=== PATIENT | female | born 2000 | race Caucasian/White ===

== ENCOUNTER 2021-02-19 17:45 | Emergency (ER) | payer SELFPAY ==
[2021-02-19 17:58] VITALS: BP 144/74; PULSE 68; RESP 16; TEMP 36.6; O2SAT 100; BMI 23.8
--- NOTE | 2021-02-19 18:24 | HMH.EDUTC ---
[facility] Disposition Clinical Impression: Exposure to COVID-19 virus Disposition: Home, Self-Care Condition on Discharge: Good Instructions: DI for COVID-19 (Suspected or Confirmed ), Coronavirus Disease 2019, Preventing the Spread of Coronavirus Discharge Instructions, Sore Throat Additional Instructions: *Monitor Temp, Over the counter Motrin or Tylenol as directed/as needed Tylenol every 4 hours and Motrin every 6 hours (as long as your family doctor has told you that you can take it) for fever or pain. and straight to ER if unable to lower temp less than 101.0 after medication given *Warm salt water gargles may help to soothe the throat *Throat Lozenges *Warm fluids like tea with honey may help to soothe the throat *Sleep elevated *Humidifier/Vaporizer *Bromfed may cause drowsiness. Know how it effects you (your child) before driving, caring for small child, or sending your child to school. Not other antihistamines/allergy medications while taking bromfed Your throat swab was sent for culture. Those results are typically sent to your primary care. Be sure to follow up in 2-3 days with your family doctor/primary care physician if no improvement so they can review those result and treat if necessary. If you don?t have a primary care doctor, I recommend you get one but in the mean time, you will have to return to a walk in clinic Follow up IMMEDIATELY for new or worsening symptoms or no Noticeable improvement over the next 48-72 hours. 911 for difficulty breathing or swallowing You were tested for today for COVID19 your test result should be back in the next 24-48 hours, you may call to the [facility] to see if your test results are back in the next 48 hours [phone] [facility] hours are 9am-9pm You was given a handout with instructions for Self Quarantine and Self isolation for while you wait on test results and what to do if they are positive If you are positive the Health Dept will be contacting you also Prescriptions: Brompheniramine/Pseudoephed/Dm [Bromfed Dm Cough Syrup] 5 - 10 ml PO Q46H PRN #150 ml PRN Reason: Cough Transmission Status: Pending to [facility] Ondansetron [Zofran 4mg ODT] 4 mg PO TIDP PRN #10 tab PRN Reason: Nausea Transmission Status: Pending to [facility] Referrals: Jimenez Mcclure MD [Primary Care Provider] - As needed Forms: Work/School Release Time of Disposition: 18:33 Medical Decision Making - Naif Inquiry Pt receiving controlled substance: No Naif was queried for this patient: No Vital Signs: 02/19/21 17:58 Temperature 97.8 F Temperature Source Oral Pulse Rate [Left] 68 Respiratory Rate 16 Blood Pressure [Right Arm] 144/74 H Blood Pressure Mean [Right Arm] 97 02 Sat by Pulse Oximetry 100 - Lab Data Lab results reviewed: Yes: I reviewed the patient's lab results. [facility] HPI - General Stated complaint: covid test,Sore throat,cough,HAmDiarrhea Time Seen by Provider: 02/19/21 18:25 Mode of Arrival: Ambulatory Source of Information: Patient Limitations: No Limitations Description of Symptoms (Recalled from Triage Doc. by RN): friend tested positive for covid. pt c/o having all the signs of covid, except loss of taste and smell. HEENT Symptoms (Recalled from RN notes): Yes (congestion and hale) Resp Symptoms (Recalled from RN notes): Yes (cough) Skin Symptoms (Recalled from RN notes): No MS Symptoms (Recalled from RN notes): No Functional Status (Recalled from RN notes): na - History of Present Illness Provider Complaint: Patient states that she was recently out of town with her friend and they both started getting sick State that her friend tested positive for COVID on Mon and she thinks she has it now too States that she is having body aches, chills, nausea and cough states that she can still taste and smell though unlike her friend - Related Data Previous Rx's Medication Instructions Recorded Ibuprofen [Ibuprofen 600mg 600 mg PO Q6HP PRN #20 tab
[2021-02-19 18:33] LABS: UTC Strep Screen (Rapid) Negative (Negative)
[2021-02-19 18:41] VITALS: BP 122/73; PULSE 85; RESP 18; TEMP 36.6
== END 2021-02-19 18:41 | disposition home or self-care (01) ==
PROVIDERS: Emergency Provider Nurse Practitioner; PCP Emergency Medicine
DX: Z20.822 Contact with and (suspected) exposure to COVID-19 (principal); M79.7 Fibromyalgia; F17.210 Nicotine dependence, cigarettes, uncomplicated
CPT/HCPCS: 87880; 99203; G0463; U0003

== ENCOUNTER 2021-08-05 13:20 | Emergency (ER) | payer BC, SELFPAY ==
[2021-08-05 13:30] VITALS: BP 140/72; PULSE 109; RESP 19; TEMP 36.9; O2SAT 98; BMI 40.3
[2021-08-05 13:53] LABS: UTC Strep Screen (Rapid) Negative (Negative)
--- NOTE | 2021-08-05 14:28 | HMH.EDUTC ---
[facility] [place] Disposition Clinical Impression: Exposure to COVID-19 virus, Viral syndrome Disposition: Home, Self-Care Condition on Discharge: Good Instructions: DI for Viral Syndrome, DI for COVID-19 (Suspected or Confirmed ), Preventing the Spread of Coronavirus Discharge Instructions Additional Instructions: *Monitor Temp, Over the counter Tylenol as directed/as needed Tylenol every 4 hours (as long as your family doctor has told you that you can take it) for fever or pain. and straight to ER if unable to lower temp less than 101.0 after medication given *Warm salt water gargles may help to soothe the throat *Throat Lozenges *Warm fluids like tea with honey may help to soothe the throat *Sleep elevated *Humidifier/Vaporizer Talk to your OBGYN or Pharmacy to see what is ok for you to take for your cough Your throat swab was sent for culture. Those results are typically sent to your primary care. Be sure to follow up in 2-3 days with your family doctor/primary care physician if no improvement so they can review those result and treat if necessary. If you don?t have a primary care doctor, I recommend you get one but in the mean time, you will have to return to a walk in clinic Follow up IMMEDIATELY for new or worsening symptoms or no Noticeable improvement over the next 48-72 hours. 911 for difficulty breathing or swallowing You were tested for today for COVID19 your test result should be back in the next 24-48 hours, you may check your results on the [facility] My Health Portal if you have trouble logging on you can call support or you will get a call if your results are Positive You was given a handout with instructions for Self Quarantine and Self isolation for while you wait on test results and what to do if they are positive If you are positive the Health Dept will be contacting you also Make sure to take your Vitamins Vit. C Vit D and Zinc if you can take them Referrals: Nishant Davidson APRN [Primary Care Provider] - As needed Forms: Work/School Release Time of Disposition: 14:30 Medical Decision Making - Naif Inquiry Pt receiving controlled substance: No Naif was queried for this patient: No Vital Signs: 08/05/21 13:30 Temperature 98.4 F Temperature Source Oral Pulse Rate [Right Brachial] 109 H Respiratory Rate 19 Blood Pressure [Right Arm] 140/72 Blood Pressure Mean [Right Arm] 94 Blood Pressure Source [Right Arm] Automatic Cuff Blood Pressure Position [Right Arm] Sitting 02 Sat by Pulse Oximetry 98 Oxygen Delivery Method Room Air - Lab Data Lab results reviewed: Yes: I reviewed the patient's lab results. Lab Results 08/05/21 13:38: Strep Scn Rapid Clinic Negative Orders (Tests/Meds): ORDERS Category Date Time Status Covid-19 Nasal PCR ([facility]) Routine Lab 08/05/21 13:36 Received Strep Screen Confirmation Stat Micro 08/05/21 13:38 Received [facility] UTC HPI - General Stated complaint: sore throat cough,headache Time Seen by Provider: 08/05/21 14:28 Mode of Arrival: Ambulatory Source of Information: Patient Limitations: No Limitations Description of Symptoms (Recalled from Triage Doc. by RN): PATIENT C/O COUGH, SORE THROAT, HEADACHE, BODY ACHES, AND CHILLS SINCE THIS MORNING HEENT Symptoms (Recalled from RN notes): Yes Resp Symptoms (Recalled from RN notes): Yes Skin Symptoms (Recalled from RN notes): No MS Symptoms (Recalled from RN notes): No Functional Status (Recalled from RN notes): WNL - History of Present Illness Provider Complaint: Patient state that her boyfriend tested positive for COVID yesterday State that she started feeling bad last night State that she is 11wks OB States that she has been having cough, sore throat, body aches, and chills State that it continued to get worse over night so she came in today to get tested - Related Data Allergies Allergy/AdvReac Type Severity Reaction Status Date / Time No Known Allergies Allergy Verified 12/06/18 14:11 - Worker's Comp Is th
[2021-08-05 14:35] VITALS: BP 140/72; PULSE 109; RESP 19; TEMP 36.9; O2SAT 98
== END 2021-08-05 14:38 | disposition home or self-care (01) ==
PROVIDERS: Emergency Provider Nurse Practitioner; PCP Nurse Practitioner Family
DX: U07.1 COVID-19 (principal); F17.210 Nicotine dependence, cigarettes, uncomplicated; M79.7 Fibromyalgia
CPT/HCPCS: 87880; 99203; C9803; G0463; U0003; U0005

== ENCOUNTER 2021-09-22 17:52 | Emergency (ER) | payer BC, SELFPAY ==
[2021-09-22 18:41] VITALS: BP 122/68; PULSE 90; RESP 18; TEMP 36.4; O2SAT 95; BMI 35.5
[2021-09-22 18:54] LABS: UTC Strep Screen (Rapid) Positive (Negative)
--- NOTE | 2021-09-22 19:47 | HMH.EDUTC ---
[facility] [place] Disposition Clinical Impression: Strep throat Disposition: Home, Self-Care Condition on Discharge: Good Instructions: Strep Throat, DI for Strep Throat Additional Instructions: Drink plenty of fluids. Take tylenol or ibuprofen for pain or fever. Take the medications as directed. Follow up with your regular doctor. GO TO THE ER FOR ANY WORSENING SYMPTOMS Throw your tooth brush away and get a new one. Prescriptions: Amoxicillin [Amoxicillin 500mg Tab] 500 mg PO TID 10 Days #30 tab Transmission Status: Received by [facility] Referrals: Nishant Davidson APRN [Primary Care Provider] - Forms: Work/School Release Time of Disposition: 19:57 Medical Decision Making - Medical Records Medical records reviewed: No: I reviewed the patient's medical records. - Naif Inquiry Pt receiving controlled substance: No Vital Signs: 09/22/21 18:41 09/22/21 20:03 Temperature 97.6 F 97.6 F Temperature Source Temporal Artery Scan Pulse Rate 90 Pulse Rate [Left] 90 Respiratory Rate 18 18 Blood Pressure 122/68 Blood Pressure [Right Arm] 122/68 Blood Pressure Mean [Right Arm] 86 02 Sat by Pulse Oximetry 95 - Lab Data Lab results reviewed: Yes: I reviewed the patient's lab results. Lab Results 09/22/21 18:36: Strep Scn Rapid Clinic Positive A [facility] [place] HPI - General Stated complaint: SORE THROAT.COUGH Time Seen by Provider: 09/22/21 19:00 Mode of Arrival: Ambulatory Source of Information: Patient Limitations: No Limitations Description of Symptoms (Recalled from Triage Doc. by RN): pt c/o a sore throat, cough, ZHENG, and pressure in her ears. x1wk HEENT Symptoms (Recalled from RN notes): Yes Resp Symptoms (Recalled from RN notes): Yes Skin Symptoms (Recalled from RN notes): No MS Symptoms (Recalled from RN notes): No Functional Status (Recalled from RN notes): wnl - History of Present Illness Provider Complaint: She c/o sore throat for the past 2 days. - Related Data Previous Rx's Medication Instructions Recorded Amoxicillin [Amoxicillin 500mg Tab] 500 mg PO TID 10 Days #30 tab 09/22/21 Allergies Allergy/AdvReac Type Severity Reaction Status Date / Time No Known Allergies Allergy Verified 12/06/18 14:11 - Worker's Comp Is this a Worker's Comp case?: No [facility] History - Hepatitis A Screen Drug use history?: No High risk sexual behaviors?: No History of sexually transmitted infection?: No Currently employed?: No Childcare worker?: No Do you have indoor plumbing?: Yes Do you have electricity?: Yes Attestation statement:: This patient has been screened for Hepatitis A risk factors. I have reviewed the patient's past medical history: Yes Medical History: Denies:: Aneurysm, Anxiety, Asthma, Atrial Fibrillation, Congestive Heart Failure, Chronic Obstructive Pulmonary Disease (COPD), Coronary Artery Disease, Cerebrovascular Accident, Deep Vein Thrombosis, Dementia, Depression, Diabetes Mellitus Type 1, Diabetes Mellitus Type 2, Gastroesophageal Reflux Disease(GERD), Gastrointestinal Bleed, Hyperlipidemia, Hypertension, Internal Pacemaker, Kidney Stones, Migraine, Myocardial Infarction, Osteoporosis, Peripheral Artery Disease, Pulmonary Embolism, Renal Disease, Seizures, Supraventricular Tachycardia, Transient Ischemic Attacks (TIA), Valvular Heart Disease Other Medical History: Denies: Arthritis, Cataracts, Fibromyalgia, Glaucoma, Acquired Immunodeficiency Syndrome (AIDS), HIV, Liver Disease, Osteoporosis, Thyroid Disease Laterality Cases: Bilateral: Tonsillectomy Other Surgeries: Yes: No Previous Surgery. No: Angioplasty, Appendectomy, Bariatric Surgery, CABG, Cancer Surgery, Cholecystectomy, Colon Resection, Colostomy, Hernia Repair, Hysterectomy-Total, Hysterectomy-Partial, Organ Transplant, Pacemaker, Sinus Surgery, Splenectomy, Thyroidectomy, Ureter Stent, Other Valve Replacement Amputation: No Fractures: No - Social History Smoking Status: Desire
[2021-09-22 20:03] VITALS: BP 122/68; PULSE 90; RESP 18; TEMP 36.4
== END 2021-09-22 20:05 | disposition home or self-care (01) ==
PROVIDERS: Emergency Provider Nurse Practitioner Family; PCP Nurse Practitioner Family
DX: J02.0 Streptococcal pharyngitis (principal)
CPT/HCPCS: 87880; 99212; G0463

== ENCOUNTER 2021-11-04 16:59 | Emergency (ER) | payer BC, SELFPAY ==
[2021-11-04 17:22] VITALS: BP 117/77; PULSE 103; RESP 19; TEMP 37; O2SAT 97; BMI 45.1
--- NOTE | 2021-11-04 17:36 | HMH.EDUTC ---
[facility] [place] Clinical Impression: Influenza A Disposition: Home, Self-Care Condition on Discharge: Good Instructions: DI for Influenza -- Adult Additional Instructions: No sign of a bacterial infection. Likely viral. Viruses can take 7-14 days to run their course. Monitor temp. Tylenol as needed for pain or fever Encourage fluids, water, Gatorade, Powerade, Warm salt water gargles Warm fluids Sore throat lozenges Sleep elevated Humidifier/vaporizer Follow-up immediately for new or worsening symptoms or no noticeable improvement over the next 48-72 hours. Prescriptions: Oseltamivir Phosphate [Tamiflu 75mg Capsule] 75 mg PO BID #10 cap Transmission Status: Pending to [facility] Referrals: Nishant Davidson APRN [Primary Care Provider] - Time of Disposition: 17:47 Medical Decision Making - Naif Inquiry Pt receiving controlled substance: No Vital Signs: 11/04/21 17:22 Temperature 98.6 F Temperature Source Oral Pulse Rate [Left] 103 H Respiratory Rate 19 Blood Pressure [Right Arm] 117/77 Blood Pressure Mean [Right Arm] 90 02 Sat by Pulse Oximetry 97 - Lab Data Lab Results 11/04/21 17:21: Influenza Type A Ag Positive A, Influenza Type B Ag Negative 11/04/21 17:22: Group A Strep Rapid Negative Orders (Tests/Meds): ORDERS Category Date Time Status Strep Screen Confirmation Stat Micro 11/04/21 17:22 Received [facility] [place] HPI - General Chief complaint: [facility] Stated complaint: throat, cough body pain Time Seen by Provider: 11/04/21 17:36 Mode of Arrival: Ambulatory Source of Information: Patient Limitations: No Limitations Description of Symptoms (Recalled from Triage Doc. by RN): pt c/o a cough, sore throat, body aches, n/v and loss of appetite since yesterday. pt is 5.5mo . HEENT Symptoms (Recalled from RN notes): Yes Resp Symptoms (Recalled from RN notes): No Skin Symptoms (Recalled from RN notes): No MS Symptoms (Recalled from RN notes): No Functional Status (Recalled from RN notes): wnl - History of Present Illness Provider Complaint: 21 yr old female presents for c/o a cough two days ago and last pm started having sore throat, body aches, n/v and loss of appetite since yesterday. pt is 5 mo . - Related Data Previous Rx's Medication Instructions Recorded Amoxicillin [Amoxicillin 500mg Tab] 500 mg PO TID 10 Days #30 tab 09/22/21 Oseltamivir Phosphate [Tamiflu 75 mg PO BID #10 cap 11/04/21 75mg Capsule] Allergies Allergy/AdvReac Type Severity Reaction Status Date / Time No Known Allergies Allergy Verified 12/06/18 14:11 - Worker's Comp Is this a Worker's Comp case?: No [facility] History - Hepatitis A Screen Drug use history?: No High risk sexual behaviors?: No History of sexually transmitted infection?: No Currently employed?: No Childcare worker?: No Do you have indoor plumbing?: Yes Do you have electricity?: Yes Attestation statement:: This patient has been screened for Hepatitis A risk factors. I have reviewed the patient's past medical history: Yes Medical History: Denies:: Aneurysm, Anxiety, Asthma, Atrial Fibrillation, Congestive Heart Failure, Chronic Obstructive Pulmonary Disease (COPD), Coronary Artery Disease, Cerebrovascular Accident, Deep Vein Thrombosis, Dementia, Depression, Diabetes Mellitus Type 1, Diabetes Mellitus Type 2, Gastroesophageal Reflux Disease(GERD), Gastrointestinal Bleed, Hyperlipidemia, Hypertension, Internal Pacemaker, Kidney Stones, Migraine, Myocardial Infarction, Osteoporosis, Peripheral Artery Disease, Pulmonary Embolism, Renal Disease, Seizures, Supraventricular Tachycardia, Transient Ischemic Attacks (TIA), Valvular Heart Disease Other Medical History: Denies: Arthritis, Cataracts, Fibromyalgia, Glaucoma, Acquired Immunodeficiency Syndrome (AIDS), HIV, Liver Disease, Osteoporosis, Thyroid Disease Laterality Cases: Bilateral: Tonsillectomy Other Surgeries: Yes: No Previous [place]
[2021-11-04 17:38] LABS: Strep Scrn Group A (Rapid) Negative (Negative)
[2021-11-04 17:41] LABS: UTC Influenza A Antigen Positive (Negative); UTC Influenza B Antigen Negative (Negative)
[2021-11-04 18:13] VITALS: BP 117/77; PULSE 103; RESP 19; TEMP 37
== END 2021-11-04 18:14 | disposition home or self-care (01) ==
PROVIDERS: Emergency Provider Nurse Practitioner Family; PCP Nurse Practitioner Family
DX: J10.1 Influenza due to other identified influenza virus with other respiratory manifestations (principal); F17.290 Nicotine dependence, other tobacco product, uncomplicated; Z82.49 Family history of ischemic heart disease and other diseases of the circulatory system
CPT/HCPCS: 87430; 87804; 99213; G0463

== ENCOUNTER 2021-11-15 18:46 | Emergency (ER) | payer BC, SELFPAY ==
[2021-11-15 19:30] VITALS: BP 141/86; PULSE 89; RESP 18; TEMP 36.8; O2SAT 99; BMI 43.7
--- NOTE | 2021-11-15 19:44 | HMH.EDUTC ---
[facility] [place] Disposition Clinical Impression: Paronychia Disposition: Home, Self-Care Condition on Discharge: Good Instructions: DI for Paronychia, Paronychia, Amoxicillin and Clavulanic Acid, Bacitracin Topical Additional Instructions: Soak finger in warm water and epson salt two to three times daily and pat dry and apply topical medication Take oral medication as prescribed Look for sharp hangnail to stick through skin and trim Return if needed Follow up with your Family Doctor if no improvement or any worsening of symptoms Prescriptions: Amoxicillin/Potassium Clav [Amox-Clav 875-125 mg Tablet] 1 tab PO BID #14 tab [facility]: [facility] Bacitracin [Bacitracin Oint 0.9GM UDP] 1 each TP TID 10 Days #30 packet Transmission Status: Pending to [facility] Referrals: Nishant Davidson APRN [Primary Care Provider] - As needed Time of Disposition: 19:58 Medical Decision Making - Naif Inquiry Pt receiving controlled substance: No Naif was queried for this patient: No Vital Signs: 11/15/21 19:30 Temperature 98.3 F Temperature Source Oral Pulse Rate [Left Radial] 89 Respiratory Rate 18 Blood Pressure [Left Arm] 141/86 H Blood Pressure Mean [Left Arm] 104 Blood Pressure Source [Left Arm] Automatic Cuff Blood Pressure Position [Left Arm] Sitting 02 Sat by Pulse Oximetry 99 Oxygen Delivery Method Room Air Medical Decision Narrative: Patient is medication discussed with pharmacy to assure that medication is safe for use during [facility] [place] HPI - General Stated complaint: LITTLE RIGHT FINGER INFECTED Time Seen by Provider: 11/15/21 19:44 Mode of Arrival: Ambulatory Source of Information: Patient Limitations: No Limitations Description of Symptoms (Recalled from Triage Doc. by RN): C/O ingrown nail to rt pinky. Advises of swelling since yesterday HEENT Symptoms (Recalled from RN notes): No Resp Symptoms (Recalled from RN notes): No Skin Symptoms (Recalled from RN notes): Yes (Ingrown nail rt pinky) MS Symptoms (Recalled from RN notes): No Functional Status (Recalled from RN notes): n/a - History of Present Illness Provider Complaint: Patient states that she has been having redness and swelling around her little finger on her right hand thinks she may have an ingrown fingernail or hang nail State that it is sore to the touch and red and a little swollen so she came in to get it checked - Related Data Previous Rx's Medication Instructions Recorded Amoxicillin [Amoxicillin 500mg Tab] 500 mg PO TID 10 Days #30 tab 09/22/21 Oseltamivir Phosphate [Tamiflu 75 mg PO BID #10 cap 11/04/21 75mg Capsule] Amoxicillin/Potassium Clav 1 tab PO BID #14 tab 11/15/21 [Amox-Clav 875-125 mg Tablet] Bacitracin [Bacitracin Oint 0.9GM 1 each TP TID 10 Days #30 packet 11/15/21 UDP] Allergies Allergy/AdvReac Type Severity Reaction Status Date / Time No Known Allergies Allergy Verified 12/06/18 14:11 - Worker's Comp Is this a Worker's Comp case?: No [facility] History - Hepatitis A Screen Drug use history?: No High risk sexual behaviors?: No History of sexually transmitted infection?: No Currently employed?: No Childcare worker?: No Do you have indoor plumbing?: Yes Do you have electricity?: Yes Attestation statement:: This patient has been screened for Hepatitis A risk factors. I have reviewed the patient's past medical history: Yes Medical History: Denies:: Aneurysm, Anxiety, Asthma, Atrial Fibrillation, Congestive Heart Failure, Chronic Obstructive Pulmonary Disease (COPD), Coronary Artery Disease, Cerebrovascular Accident, Deep Vein Thrombosis, Dementia, Depression, Diabetes Mellitus Type 1, Diabetes Mellitus Type 2, Gastroesophageal Reflux Disease(GERD), Gastrointestinal Bleed, Hyperlipidemia, Hypertension, Internal Pacemaker, Kidney Stones, Migraine, Myocardial Infarction, Osteoporosis, Peripheral Artery Disease, Pulmonary Embolism, Renal Diseas
[2021-11-15 20:19] VITALS: BP 141/86; PULSE 89; RESP 18; TEMP 36.8; O2SAT 99
== END 2021-11-15 20:20 | disposition home or self-care (01) ==
PROVIDERS: Emergency Provider Nurse Practitioner; PCP Nurse Practitioner Family
DX: L03.011 Cellulitis of right finger (principal); F17.210 Nicotine dependence, cigarettes, uncomplicated
CPT/HCPCS: 99212; G0463

== ENCOUNTER 2021-12-06 11:20 | Emergency (ER) | payer BC, SELFPAY ==
[2021-12-06 12:20] VITALS: BP 141/68; PULSE 80; RESP 18; TEMP 37; O2SAT 96; BMI 45.0
[2021-12-06 12:31] LABS: UTC Influenza A Antigen Negative (Negative); UTC Influenza B Antigen Negative (Negative)
--- NOTE | 2021-12-06 12:36 | HMH.EDUTC ---
[facility] [place]ression: Viral syndrome Disposition: Home, Self-Care Condition on Discharge: Good Instructions: DI for Viral Syndrome Additional Instructions: Drink plenty of fluids. Take tylenol for pain or fever. Follow up with your regular doctor. GO TO THE ER FOR ANY WORSENING SYMPTOMS Referrals: Nishant Davidson APRN [Primary Care Provider] - Forms: Work/School Release Time of Disposition: 13:28 Medical Decision Making - Medical Records Medical records reviewed: No: I reviewed the patient's medical records. - Naif Inquiry Pt receiving controlled substance: No Vital Signs: 12/06/21 12:20 12/06/21 13:39 Temperature 98.6 F 98.6 F Temperature Source Oral Pulse Rate 80 Pulse Rate [Left Radial] 80 Respiratory Rate 18 18 Blood Pressure 141/68 H Blood Pressure [Right Arm] 141/68 H Blood Pressure Mean [Right Arm] 92 02 Sat by Pulse Oximetry 96 - Lab Data Lab results reviewed: Yes: I reviewed the patient's lab results. Lab Results 12/06/21 12:18: Influenza Type A Ag Negative, Influenza Type B Ag Negative 12/06/21 12:19: Group A Strep Rapid Negative Orders (Tests/Meds): ORDERS Category Date Time Status Strep Screen Confirmation Stat Micro 12/06/21 12:19 [place] [facility] [place] - General Stated complaint: cough, diarrhea Time Seen by Provider: 12/06/21 12:36 Mode of Arrival: Ambulatory Source of Information: Patient, Significant Other Limitations: No Limitations Description of Symptoms (Recalled from Triage Doc. by RN): pt here with c/oi of coughing and diarrhea. symptoms started yesterday. pt is 7 months HEENT Symptoms (Recalled from RN notes): No Resp Symptoms (Recalled from RN notes): No Skin Symptoms (Recalled from RN notes): No MS Symptoms (Recalled from RN notes): Yes Functional Status (Recalled from RN notes): wnl - History of Present Illness Provider Complaint: She c/o having a cough since yesterday. She has also been having diarrhea, but no n/v. She denies any abdominal pain or cramping. She denies fever or chills. She denies any dysuria, vaginal bleeding or discharge. - Related Data Previous Rx's Medication Instructions Recorded Amoxicillin [Amoxicillin 500mg Tab] 500 mg PO TID 10 Days #30 tab 03/02/22 Oseltamivir Phosphate [Tamiflu 75 mg PO BID #10 cap 11/04/21 75mg Capsule] Amoxicillin/Potassium Clav 1 tab PO BID #14 tab 11/15/21 [Amox-Clav 875-125 mg Tablet] Bacitracin [Bacitracin Oint 0.9GM 1 each TP TID 10 Days #30 packet 11/15/21 UDP] Allergies Allergy/AdvReac Type Severity Reaction Status Date / Time No Known Allergies Allergy Verified 12/06/21 12:25 - Worker's Comp Is this a Worker's Comp case?: No [facility] History - Hepatitis A Screen Attestation statement:: This patient has been screened for Hepatitis A risk factors. I have reviewed the patient's past medical history: Yes Medical History: Denies:: Aneurysm, Anxiety, Asthma, Atrial Fibrillation, Congestive Heart Failure, Chronic Obstructive Pulmonary Disease (COPD), Coronary Artery Disease, Cerebrovascular Accident, Deep Vein Thrombosis, Dementia, Depression, Diabetes Mellitus Type 1, Diabetes Mellitus Type 2, Gastroesophageal Reflux Disease(GERD), Gastrointestinal Bleed, Hyperlipidemia, Hypertension, Internal Pacemaker, Kidney Stones, Migraine, Myocardial Infarction, Osteoporosis, Peripheral Artery Disease, Pulmonary Embolism, Renal Disease, Seizures, Supraventricular Tachycardia, Transient Ischemic Attacks (TIA), Valvular Heart Disease Other Medical History: Denies: Arthritis, Cataracts, Fibromyalgia, Glaucoma, Acquired Immunodeficiency Syndrome (AIDS), HIV, Liver Disease, Osteoporosis, Thyroid Disease Laterality Cases: Bilateral: Tonsillectomy Other Surgeries: Yes: No Previous Surgery. No: Angioplasty, Appendectomy, Bariatric Surgery, CABG, Cancer Surgery, Cholecystectomy, Colon Resection, Colostomy, Hernia Repair, Hysterectomy-Total, Hystere
[2021-12-06 13:00] LABS: Strep Scrn Group A (Rapid) Negative (Negative)
[2021-12-06 13:39] VITALS: BP 141/68; PULSE 80; RESP 18; TEMP 37
== END 2021-12-06 13:40 | disposition home or self-care (01) ==
PROVIDERS: Emergency Provider Nurse Practitioner Family; PCP Nurse Practitioner Family
DX: B34.9 Viral infection, unspecified (principal); R19.7 Diarrhea, unspecified; F17.290 Nicotine dependence, other tobacco product, uncomplicated; Z82.49 Family history of ischemic heart disease and other diseases of the circulatory system
CPT/HCPCS: 87430; 87804; 99213; G0463

== ENCOUNTER 2022-01-04 19:49 | Emergency (ER) | payer BC, SELFPAY ==
[2022-01-04 20:10] VITALS: BP 121/66; PULSE 91; RESP 18; TEMP 36.6; O2SAT 95; BMI 40.6
[2022-01-04 20:17] VITALS: BP 121/66; PULSE 91; RESP 18; TEMP 36.7
--- NOTE | 2022-01-04 20:17 | HMH.EDUTC ---
[facility] [place] Clinical Impression: Low back pain Qualifiers: Chronicity: unspecified Back pain laterality: unspecified Sciatica presence: unspecified whether sciatica present Qualified Code(s): M54.50 - Low back pain, unspecified Disposition: Home, Self-Care Condition on Discharge: Fair Additional Instructions: Go back to registration and reregister go straight to OB Referrals: Nishant Davidson APRN [Primary Care Provider] - As needed Time of Disposition: 20:22 Medical Decision Making - Naif Inquiry Pt receiving controlled substance: No Naif was queried for this patient: No Vital Signs: 01/04/22 20:10 01/04/22 20:17 Temperature 98 F 98.0 F Temperature Source Oral Pulse Rate 91 H Pulse Rate [Left Radial] 91 H Respiratory Rate 18 18 Blood Pressure 121/66 Blood Pressure [Right Arm] 121/66 Blood Pressure Mean [Right Arm] 84 02 Sat by Pulse Oximetry 95 Medical Decision Narrative: Patient states that she got hot at work and had some lightheadedness and felt dizzy but she is 33wks OB and has been having low back pain/pressure and pressure in her pelvic area when she squats for several days Called OB and patient will be moved to OB for further evaluation and treatment [facility] [place] - General Stated complaint: dizzy and light head Time Seen by Provider: 01/04/22 20:17 Description of Symptoms (Recalled from Triage Doc. by RN): patient is 8 month , she comes in with lightheadedness, dizziness, and shakes. patients states symptoms began today. patient states that she got really hot today at work HEENT Symptoms (Recalled from RN notes): No Resp Symptoms (Recalled from RN notes): No Skin Symptoms (Recalled from RN notes): No MS Symptoms (Recalled from RN notes): Yes Functional Status (Recalled from RN notes): wnl - History of Present Illness Provider Complaint: Patient states that she got hot at work earlier and felt light headed and dizzy also felt a little shaky but that has improved since she drink some fluids States that also she is 33wks OB and has been having pain in her lower back and pressure in her pelvic area when she squats down for the last couple of days and a couple nights ago felt like she had the urge to push but that went away but she was still having low back too so she came in - Related Data Previous Rx's Medication Instructions Recorded Amoxicillin [Amoxicillin 500mg Tab] 500 mg PO TID 10 Days #30 tab 09/22/21 Oseltamivir Phosphate [Tamiflu 75 mg PO BID #10 cap 11/04/21 75mg Capsule] Amoxicillin/Potassium Clav 1 tab PO BID #14 tab 11/15/21 [Amox-Clav 875-125 mg Tablet] Bacitracin [Bacitracin Oint 0.9GM 1 each TP TID 10 Days #30 packet 11/15/21 UDP] Allergies Allergy/AdvReac Type Severity Reaction Status Date / Time No Known Allergies Allergy Verified 12/06/21 12:25 - Worker's Comp Is this a Worker's Comp case?: No [facility] History - Hepatitis A Screen Attestation statement:: This patient has been screened for Hepatitis A risk factors. I have reviewed the patient's past medical history: Yes Medical History: Denies:: Aneurysm, Anxiety, Asthma, Atrial Fibrillation, Congestive Heart Failure, Chronic Obstructive Pulmonary Disease (COPD), Coronary Artery Disease, Cerebrovascular Accident, Deep Vein Thrombosis, Dementia, Depression, Diabetes Mellitus Type 1, Diabetes Mellitus Type 2, Gastroesophageal Reflux Disease(GERD), Gastrointestinal Bleed, Hyperlipidemia, Hypertension, Internal Pacemaker, Kidney Stones, Migraine, Myocardial Infarction, Osteoporosis, Peripheral Artery Disease, Pulmonary Embolism, Renal Disease, Seizures, Supraventricular Tachycardia, Transient Ischemic Attacks (TIA), Valvular Heart Disease Other Medical History: Denies: Arthritis, Cataracts, Fibromyalgia, Glaucoma, Acquired Immunodeficiency Syndrome (AIDS), HIV, Liver Disease, Osteoporosis, Thyroid Disease Laterality Cases: Bilateral: Tonsillectomy Other Surgeries: Yes: No Previous Surgery.
[2022-01-04 21:27] LABS: POC Glucose,Bedside 117 (70-110)
== END 2022-01-04 20:26 | disposition home or self-care (01) ==
PROVIDERS: Emergency Provider Nurse Practitioner; PCP Nurse Practitioner Family
DX: O26.893 Other specified pregnancy related conditions, third trimester (principal); M54.50 Low back pain, unspecified; O26.813 Pregnancy related exhaustion and fatigue, third trimester; R42 Dizziness and giddiness; O99.333 Smoking (tobacco) complicating pregnancy, third trimester; Z82.49 Family history of ischemic heart disease and other diseases of the circulatory system; Z3A.33 33 weeks gestation of pregnancy
CPT/HCPCS: 82962; 99213; G0463

== ENCOUNTER 2022-01-04 20:27 | Outpatient (CLI) | payer BC, SELFPAY ==
[2022-01-04 20:38] VITALS: BMI 44.4
[2022-01-04 20:48] LABS: Microscopic, Urine URINE MICROSCOPIC (MICROSCOPIC)
[2022-01-04 21:01] LABS: Appearance,Urine CLEAR (Clear); Blood, Urine Negative (Negative); Color,Urine YELLOW (Yellow); Glucose,Urine (UA) Negative (Negative); Ketones,Urine TRACE (Negative); Leukocyte Esterase,Urine Negative (Negative); Nitrate,Urine Negative (Negative); Protein,Urine TRACE (Negative); Specific Gravity, Urine >= 1.030 (1.005-1.030); Urobilinogen,Urine 0.2 EU/dl (0.2)
[2022-01-04 21:04] VITALS: BP 122/73; PULSE 96; RESP 18; TEMP 36.9; O2SAT 98; BMI 44.4
[2022-01-04 21:07] LABS: Bilirubin,Urine 1+ (Negative)
[2022-01-04 21:10] LABS: Bacteria,Urine 1+ /lpf; Trichomonas,Urine Occasional /lpf
[2022-01-04 21:12] LABS: Amphetamine/Metha Screen,Urine Negative ng/ml (<1000)
[2022-01-04 21:13] LABS: Barbiturates Screen,Urine Negative ng/ml (<200); Benzodiazepines Screen,Urine Negative ng/ml (<200)
[2022-01-04 21:14] LABS: Cannabinoid Screen,Urine Negative ng/ml (<50)
[2022-01-04 21:15] LABS: Cocaine Screen,Urine Negative ng/ml (<300); Methadone Screen,Urine Negative ng/ml (<300)
[2022-01-04 21:16] LABS: Opiate Screen,Urine Negative ng/ml (<300)
[2022-01-04 21:17] LABS: Phencyclidine Screen,Urine Negative ng/ml (<25)
== END 2022-01-04 22:35 | disposition home or self-care (01) ==
LOC: OBOUT 20:29 → OB 20:30
PROVIDERS: PCP Nurse Practitioner Family; Visit Provider Nurse Practitioner Obstetrics & Gynecology
DX: O26.893 Other specified pregnancy related conditions, third trimester (principal); Z3A.33 33 weeks gestation of pregnancy; M54.50 Low back pain, unspecified
CPT/HCPCS: 59025; 80305; 81001; 96360

== ENCOUNTER 2022-03-29 22:47 | Emergency (ER) | payer BC, SELFPAY ==
[2022-03-29 22:59] VITALS: BP 161/102; PULSE 102; RESP 18; TEMP 38.2; O2SAT 100; BMI 41.9
[2022-03-29 23:20] LABS: Coronavirus 19, PCR Not Detected (NotDetected); Influenza A, PCR Not Detected (NotDetected); Influenza B, PCR Not Detected (NotDetected)
[2022-03-29 23:24] LABS: Microscopic, Urine URINE MICROSCOPIC (MICROSCOPIC)
[2022-03-29 23:26] LABS: Appearance,Urine CLEAR (Clear); Bilirubin,Urine Negative (Negative); Blood, Urine 2+ (Negative); Color,Urine YELLOW (Yellow); Glucose,Urine (UA) Negative (Negative); Ketones,Urine Negative (Negative); Leukocyte Esterase,Urine Negative (Negative); Nitrate,Urine Negative (Negative); PH,Urine 6.5 (5.0-8.5); Protein,Urine Negative (Negative); Specific Gravity, Urine 1.025 (1.005-1.030); Urobilinogen,Urine 0.2 EU/dl (0.2)
[2022-03-29 23:27] LABS: Basophils % 0.3 % (0.1-2.0); Eosinophils # 0.1 K/mm3 (0.0-0.4); Eosinophils % 1.3 % (0.1-12.0); Hematocrit 31.8 % (37.0-47.0); Lymphocytes # 1.1 K/mm3 (0.7-4.5); Lymphocytes % 14.1 % (10-50); Mean Corpuscular HGB Conc 31.4 g/dL (31.8-35.4); Mean Corpuscular Hemoglobin 22.6 pg (27.0-31.2); Mean Platelet Volume 9.5 fl (7.4-10.4); Monocytes # 0.6 K/mm3 (0.1-1.0); Monocytes % 8.4 % (1.7-9.3); Neutrophils # 5.8 K/mm3 (1.8-7.8); Neutrophils % 75.8 % (37.0-80.0); Platelet Count 321 K/mm3 (142-424); Red Blood Count 4.42 M/mm3 (4.20-5.40); Red Cell Distribution Width 17.2 % (11.5-17.5); White Blood Count 7.7 K/mm3 (4.8-10.8)
[2022-03-29 23:53] LABS: Chloride 106 mmol/L (98-107); Sodium 141 mmol/L (136-145)
[2022-03-29 23:56] LABS: Alanine Aminotransferase 19 U/L (12-78); Albumin Level 4.3 g/dl (3.5-5.0); Albumin/Globulin Ratio 1.3 (1.1-1.8); Alkaline Phosphatase 89 U/L (38-126); Aspartate Amino Transferase 26 U/L (14-36); Blood Urea Nitrogen 22 mg/dl (7-17); Carbon Dioxide 25 mmol/L (22.0-30.0); Creatinine Clearance Estimated 103 mL/min (50-200); Estimated Glomerular Filt Rate 90 ml/min (>60); GFR (African American) 109 ML/MIN (>60); Globulin 3.3 g/dL (1.3-3.2); Total Protein,Serum 7.6 g/dl (6.3-8.2)
[2022-03-29 23:57] LABS: Calcium 9.6 mg/dl (8.4-10.2); Glucose 112 mg/dl (74-100)
[2022-03-30 00:02] LABS: C-Reactive Protein 21.5 mg/L (0-4)
[2022-03-30 00:03] VITALS: BP 138/81; PULSE 92; RESP 17; TEMP 38.2; O2SAT 97
[2022-03-30 00:07] LABS: Erythrocyte Sedimentation Rate 37 mm/hr (0-20)
--- NOTE | 2022-03-30 00:08 | PC.NURSE ---
PT UPDATED WITH EXPECTED WAIT TIMES. FAMILY AT BEDSIDE. WCM.
[2022-03-30 00:09] LABS: Bilirubin,Total < 0.1 mg/dl (0.2-1.3)
--- NOTE | 2022-03-30 00:11 | HMH.EDFEV ---
Discharge Plan Disposition Patient Disposition: Home, Self-Care Chief Complaint: Fever Prescriptions Prescriptions: No Action No Known Home Medications Referrals Follow up/Referrals: Jimenez Mcclure MD [Primary Care Provider] - See instructions Clinical Impressions Clinical Impression: Febrile illness, acute Instructions Patient Instructions: DI for Fever (Symptom) -- Adult Discharge ED Provider: Jimenez Mcclure Fever HPI General Chief Complaint: Fever Stated Complaint: fEVER,CHILLS,bODY aCHES Time Seen by Provider: 03/29/22 23:05 Mode of Arrival: Ambulatory Source of Information: Patient, Significant Other and Medical Record Limitations: No Limitations Description of Symptoms (Recalled from ER Triage Doc. by RN): PT REPORTS THAT SHE STARTED RUNNING A FEVER TODAY. PT DENIES ABDOMINAL PAIN. PT REPORTS THAT SHE HAD A 03/19/22. SITE WNL. History of Present Illness HPI Narrative: uri sx with fever today - no rash or urinary sx complaint: fever Onset (ago): hour(s) Context: recent procedure Associated symptoms: denies other symptoms Relieving factors: acetaminophen Related Data Home Medications Medication Instructions Recorded Confirmed No Known Home Medications 03/29/22 03/29/22 Allergies Allergy/AdvReac Type Severity Reaction Status Date / Time No Known Allergies Allergy Verified 12/06/21 12:25 PFSH PFSH Social History Smoking Status: Never smoker alcohol intake: never substance use type: denies use current occupational status: employed Travel in the last 8 weeks: None household members: family housing: house number of children: 0 ROS Obtained: Yes All systems reviewed & no additional complaints except as documented Constitutional Constitutional: Reports fever(s) Eyes Eyes: Denies loss of vision ENT Ears, Nose, Mouth, and Throat: Denies epistaxis Cardiovascular Cardiovascular: Denies dyspnea Respiratory Respiratory: Denies dyspnea Neurologic Neurologic: Denies loss of vision Physical Exam General General appearance: alert and obese Head Head exam: normocephalic Eye Eye exam: Present PERRL and EOMI ENT ENT exam: Present mucous membranes moist Expanded ENT Exam Throat exam: Present tonsillar erythema Neck Neck exam: Present trachea midline Respiratory Respiratory exam: Present normal lung sounds bilaterally; Absent respiratory distress Cardiovascular Cardiovascular exam: Present regular rate; Absent systolic murmur Abdominal Exam Abdominal exam: Present soft Extremities Exam Extremities exam: Absent tenderness Neurological Exam Neurological exam: Present alert, oriented X3 and CN II-XII intact Psychiatric Psychiatric exam: Present normal affect Skin Skin exam: Absent rash Medical Decision Making Medical Records Medical records reviewed: Yes I reviewed the patient's medical records. Naif Inquiry Pt receiving controlled substance: No Vital Signs: 03/29/22 22:59 03/29/22 23:31 03/30/22 00:03 Temperature 100.8 F H 100.8 F H Temperature Source Oral Oral Oral Pulse Rate 92 H Pulse Rate [Left Radial] 102 H Respiratory Rate 18 17 Blood Pressure 138/81 Blood Pressure [Right Arm] 161/102 H Blood Pressure Mean 94 Blood Pressure Mean [Right Arm] 121 Blood Pressure Source [Right Arm] Automatic Cuff Blood Pressure Position [Right Arm] Sitting 02 Sat by Pulse Oximetry 100 97 Oxygen Delivery Method Room Air Lab Data Lab results reviewed: Yes I reviewed the patient's lab results. Lab Results 03/29/22 22:53: Urine Color Yellow, Urine Appearance Clear, Urine pH 6.5, Ur Specific [place] 1.025, Urine Protein Negative, Urine Glucose (UA) Negative, Urine Ketones Negative, Urine Blood 2+, Urine Nitrate Negative, Urine Bilirubin Negative, Urine Urobilinogen 0.2, Ur Leukocyte Esterase Negative, Urine RBC 3-5, Urine WBC 3-5, Ur Squamous Epith Cells Occasional, Urine Bacteria Trace 03/29/22
[2022-03-30 00:21] LABS: Bacteria,Urine Trace /lpf; Squamous Epithelial Cell,Urine Occasional #/hpf (0-5)
[2022-03-30 00:32] VITALS: BP 120/75; PULSE 90; RESP 19; TEMP 37.6; O2SAT 95
[2022-03-30 00:36] LABS: Adenovirus,PCR Not Detected (NotDetected); Bordetella Pertussis Not Detected (NotDetected); Chlamydophila Pneumoniae, PCR Not Detected (NotDetected); Coronavirus 229E Not Detected (NotDetected); Coronavirus NL63 Not Detected (NotDetected); Coronavirus OC43 Not Detected (NotDetected); Coronovirus HKU1,PCR Not Detected (NotDetected); Human Metapneumovirus Not Detected (NotDetected); Influenza A, PCR Not Detected (NotDetected); Influenza AH1, 2009 Not Detected (NotDetected); Influenza AH1, PCR Not Detected (NotDetected); Influenza AH3,PCR Not Detected (NotDetected); Influenza B, PCR Not Detected (NotDetected); Mycoplasma Pneumoniae, PCR Not Detected (NotDetected); Parainfluenza 1, PCR Not Detected (NotDetected); Parainfluenza 2, PCR Not Detected (NotDetected); Parainfluenza 3, PCR Not Detected (NotDetected); Parainfluenza 4, PCR Not Detected (NotDetected); Respiratory Syncytial Virus Not Detected (NotDetected); Rhinovirus/Enterovirus Not Detected (NotDetected)
== END 2022-03-30 00:44 | disposition home or self-care (01) ==
PROVIDERS: Emergency Provider Emergency Medicine; PCP Emergency Medicine
DX: R50.9 Fever, unspecified (principal); M79.10 Myalgia, unspecified site; Z20.822 Contact with and (suspected) exposure to COVID-19
CPT/HCPCS: 80053; 81001; 85025; 85651; 86140; 87486; 87581; 87632; 87798; 96360; 99284; C9803; U0003; U0005

== ENCOUNTER 2022-04-02 20:57 | Emergency (ER) | payer BC, SELFPAY ==
[2022-04-02 22:15] VITALS: BP 0/0; PULSE 0; RESP 0; TEMP -17.7; TEMP 0
== END 2022-04-02 22:16 | disposition left against medical advice (07) ==
LOC: ER 21:39
PROVIDERS: Emergency Provider Emergency Medicine; PCP Physician Assistant
DX: Z53.21 Procedure and treatment not carried out due to patient leaving prior to being seen by health care provider (principal)

== ENCOUNTER → 2022-12-06 15:29 | Outpatient (CLI) | payer BC, SELFPAY ==
[2022-12-06 18:28] LABS: HCG,Quantitative 53726 mIU/ml (0-5.42)
[2022-12-08 15:05] LABS: Progesterone 10.7 ng/mL (.)
== END ==
PROVIDERS: PCP Pediatrics; Visit Provider Obstetrics & Gynecology
DX: N92.6 Irregular menstruation, unspecified (principal); Z32.00 Encounter for pregnancy test, result unknown
CPT/HCPCS: 36415; 84144; 84702

== ENCOUNTER → 2022-12-28 16:02 | Outpatient (CLI) | payer BC, SELFPAY | PROVIDERS: PCP Obstetrics & Gynecology; Visit Provider Obstetrics & Gynecology | DX: Z34.90 Encounter for supervision of normal pregnancy, unspecified, unspecified trimester (principal); Z3A.16 16 weeks gestation of pregnancy | CPT/HCPCS: 87086 ==

== ENCOUNTER → 2023-01-20 13:05 | Outpatient (CLI) | payer BC, SELFPAY ==
--- NOTE | 2023-01-20 13:09 | US_ITS ---
PROCEDURE: US OB /MATERNAL DETAIL CLINICAL INDICATION: 20 week anatomy scan COMPARISON: No exams were available for comparison FINDINGS: From her established due date she is 19 weeks 6 days. Viable intrauterine gestation. Cephalic position. Placenta: Anteriorplacenta grade 1. There are several placental lakes. There is average amount fluid. The cervix appears satisfactory. Closed and measuring 4.3 cm in length. Complete survey performed and was unremarkable on the submitted images as in PACS. No discrete anomalies identified on survey imaging by technologist. Active fetus. Three-vessel cord. CORD INSERTION NOT WELL VISUALIZED. FOUR-CHAMBER VIEW NOT WELL VISUALIZED. Cardiac images submitted appear normal. Aortic arch appears normal Survey of brain & ventricles Unremarkable. Choroid plexus, thalamus, cerebellum, cisterna magna all appear normal. Face and neck survey unremarkable. Upper lip and nose appear normal, PROFILE AND NASION NOT WELL VISUALIZED Diaphragm and chest views unremarkable. Abdomen: Both kidneys NOT WELL SEEN. Stomach noted and satisfactory. Bladder appears normal Spine: Survey of the spine satisfactory with no anomalies identified nor imaged. Upper, thoracic and lower spine appear normal. Both arms and legs noted. Amniotic Fluid: Adequate. Measurements: Average ultrasound age 19weeks 2days. Estimated due date by ultrasound age 1106/14/2023. Estimated weight 291g BPD = 19weeks 0 days OFD = 19weeks 2days HC = 18weeks 3days AC = 19weeks 4days FL = 19weeks 5days Growth Percentile= 33 percent Heart Rate = 150bpm Cerebellum = 19weeks 3days Humerus = 19weeks 2days HC/AC is 1.1 CI is 0.78 FL/BPD is 0.73 FL/AC is 0.22 IMPRESSION: 1. Viable fetus in the cephalic presentation with an anterior placenta grade 1. The fluid is within normal limits. 2. The placenta has several placental lakes of questionable significance. 3. Anatomical scan somewhat limited by the patient's body habitus. 4. Heart, kidneys, profile, cord insertion, nasion NOT well visualized due to position and body habitus. SUGGEST REPEAT SCAN AT 24-28 WEEKS TO ASSESS THOSE AREAS NOT FULLY VISUALIZED. 5. Anatomy images submitted in PACS appears normal. 6. Size and dates are appropriate for established due date. Dictated by: Alfredo Linda MD 01/21/2023 10:15 Alfredo Linda MD in [place] 01/21/2023 10:15
== END ==
PROVIDERS: PCP Obstetrics & Gynecology; Visit Provider Obstetrics & Gynecology
DX: Z34.92 Encounter for supervision of normal pregnancy, unspecified, second trimester (principal); Z3A.20 20 weeks gestation of pregnancy
CPT/HCPCS: 76811

== ENCOUNTER → 2023-02-22 11:58 | Outpatient (CLI) | payer BC, SELFPAY ==
[2023-02-22 12:18] LABS: Basophils % 0.2 % (0.1-2.0); Eosinophils # 0.1 K/mm3 (0.0-0.4); Hematocrit 30.9 % (37.0-47.0); Hemoglobin 9.8 g/dL (12.2-16.2); Lymphocytes # 1.9 K/mm3 (0.7-4.5); Lymphocytes % 15.2 % (10-50); Mean Corpuscular HGB Conc 31.7 g/dL (31.8-35.4); Mean Corpuscular Hemoglobin 20.7 pg (27.0-31.2); Mean Corpuscular Volume 65.3 fl (81-99); Mean Platelet Volume 9.3 fl (7.4-10.4); Monocytes # 0.7 K/mm3 (0.1-1.0); Monocytes % 5.7 % (1.7-9.3); Neutrophils # 9.6 K/mm3 (1.8-7.8); Neutrophils % 77.9 % (37.0-80.0); Platelet Count 331 K/mm3 (142-424); Red Blood Count 4.73 M/mm3 (4.20-5.40); Red Cell Distribution Width 17.1 % (11.5-17.5); White Blood Count 12.3 K/mm3 (4.8-10.8)
[2023-02-23 05:18] LABS: HIV Screen 4th Generation wRfx Non Reactive (Non Reactive)
[2023-02-23 10:54] LABS: Rapid Plasma Reagin Ab Titer Non Reactive (NonRea<1:1)
[2023-03-10 08:37] LABS: Hepatitis B Surface Antigen Negative; Hepatitis C Antibody Non Reactive
[2023-03-10 08:38] LABS: Rubella Antibodies, IgG <0.90
== END ==
PROVIDERS: PCP Nurse Practitioner Family; Visit Provider Obstetrics & Gynecology
DX: Z34.92 Encounter for supervision of normal pregnancy, unspecified, second trimester (principal); Z3A.24 24 weeks gestation of pregnancy
CPT/HCPCS: 36415; 85025; 86593; 86703; 86762; 86850; 87340; 87380; G0432

== ENCOUNTER → 2023-02-27 15:07 | Outpatient (CLI) | payer BC, SELFPAY ==
--- NOTE | 2023-02-27 15:10 | US_ITS ---
PROCEDURE: US OB FOLLOW UP CLINICAL INDICATION: re-evaluate anatomy scan COMPARISON: US US OB /MATERNAL DETAIL from 01/20/2023 FINDINGS: Transabdominal sonographic images of the uterus were obtained. From her established due date she is 25weeks 2days single viable intrauterine gestation. Breech position. Placenta: Anteriorplacenta grade 1. There is average amount fluid. Cervix appears closed and measures 3.0 cm in length. survey performed and was unremarkable on the submitted images as in PACS. No discrete anomalies identified on survey imaging by technologist. The ultrasound was difficult secondary to the patient's obesity. Active fetus. Three-vessel cord with satisfactory umbilical cord insertion. 4- chamber heart noted. LVOT, aorta appear normal. brain: Choroid plexus appears normal. Face and neck survey: Unremarkable. Lips, nose, profile, nasion appear normal. Abdomen: Both kidneys noted and unremarkable. Stomach, bladder noted and satisfactory. Spine: Survey of the spine satisfactory with no anomalies identified nor imaged. Both arms and legs noted. Amniotic Fluid: Adequate. Measurements: Average ultrasound age 24weeks 4days. Estimated due date by ultrasound age 1106/15/2023. Estimated weight 746g BPD = 24weeks 1day OFD = 24weeks 3days HC = 23weeks 5days AC = 25weeks 6days FL = 24weeks 1day Growth Percentile= 24 Humerus = 24weeks 6days HC/AC is 1.01 CI is 0.76 FL/BPD is 0.73 FL/AC is 0.2 IMPRESSION: 1. Viable fetus in the breech presentation with an anterior placenta grade 1. There are several placental lakes. 2. The fluid is within normal limits. 3. The kidneys and cord insertion were not well visualized on the previous examination. They were seen today and appear normal. 4. The rest of the anatomical scan appear normal. 5. Difficult exam secondary to the patient's obesity. Dictated by: Alfredo Linda MD 02/28/2023 09:58 Alfredo Linda MD in [facility] 02/28/2023 09:58
== END ==
PROVIDERS: PCP Nurse Practitioner Family; Visit Provider Obstetrics & Gynecology
DX: Z34.92 Encounter for supervision of normal pregnancy, unspecified, second trimester (principal); Z3A.25 25 weeks gestation of pregnancy; Z36.89 Encounter for other specified antenatal screening
CPT/HCPCS: 76816

== ENCOUNTER 2023-03-06 10:16 | Outpatient (CLI) | payer BC, SELFPAY ==
[2023-03-06 10:37] VITALS: BMI 50.1
[2023-03-06 10:43] VITALS: BP 136/68; PULSE 91; RESP 18; TEMP 36.9; O2SAT 98; BMI 50.1
== END 2023-03-06 11:43 | disposition home or self-care (01) ==
LOC: OBOUT 10:17 → OB 10:18
PROVIDERS: PCP Nurse Practitioner Family; Visit Provider Obstetrics & Gynecology
DX: O26.892 Other specified pregnancy related conditions, second trimester (principal); Z3A.26 26 weeks gestation of pregnancy; E86.0 Dehydration; R11.0 Nausea; K59.00 Constipation, unspecified
CPT/HCPCS: 96365; G0463; J2405

== ENCOUNTER → 2023-04-03 16:11 | Outpatient (CLI) | payer BC, SELFPAY ==
[2023-04-03 17:41] LABS: Basophils % 0.1 % (0.1-2.0); Eosinophils # 0.1 K/mm3 (0.0-0.4); Eosinophils % 0.9 % (0.1-12.0); Hematocrit 30.6 % (37.0-47.0); Hemoglobin 9.6 g/dL (12.2-16.2); Lymphocytes # 1.9 K/mm3 (0.7-4.5); Lymphocytes % 15.6 % (10-50); Mean Corpuscular HGB Conc 31.4 g/dL (31.8-35.4); Mean Corpuscular Hemoglobin 20.4 pg (27.0-31.2); Mean Corpuscular Volume 64.8 fl (81-99); Mean Platelet Volume 8.1 fl (7.4-10.4); Monocytes % 8.3 % (1.7-9.3); Neutrophils # 9.3 K/mm3 (1.8-7.8); Neutrophils % 75.2 % (37.0-80.0); Platelet Count 318 K/mm3 (142-424); Red Blood Count 4.72 M/mm3 (4.20-5.40); Red Cell Distribution Width 17.7 % (11.5-17.5); White Blood Count 12.4 K/mm3 (4.8-10.8)
== END ==
PROVIDERS: PCP Nurse Practitioner Family; Visit Provider Obstetrics & Gynecology
DX: O99.213 Obesity complicating pregnancy, third trimester (principal); O26.893 Other specified pregnancy related conditions, third trimester
CPT/HCPCS: 85025

== ENCOUNTER 2023-04-04 09:30 | Outpatient (CLI) | payer BC, SELFPAY ==
[2023-04-04 09:40] VITALS: BP 121/63; PULSE 99; RESP 18; TEMP 36.8; O2SAT 97
[2023-04-04 11:38] LABS: Glucose 1 Hour 137 mg/dL (74-100); Glucose,Fasting 101 mg/dl (74-100)
== END 2023-04-04 09:40 | disposition home or self-care (01) ==
PROVIDERS: PCP Nurse Practitioner Family; Visit Provider Obstetrics & Gynecology
DX: Z34.93 Encounter for supervision of normal pregnancy, unspecified, third trimester (principal); Z3A.30 30 weeks gestation of pregnancy
CPT/HCPCS: 36415; 82951; 96372; J2790

== ENCOUNTER → 2023-04-13 08:51 | Outpatient (CLI) | payer BC, SELFPAY ==
[2023-04-13 09:32] LABS: Glucose,Fasting 101 mg/dl (74-100)
[2023-04-13 10:55] LABS: Glucose 1 Hour 162 mg/dL (74-100)
[2023-04-13 12:10] LABS: Glucose 2 Hour 158 mg/dL (74-100)
[2023-04-13 13:03] LABS: Glucose 3 Hour 121 mg/dL (74-100)
== END ==
PROVIDERS: PCP Nurse Practitioner Family; Visit Provider Obstetrics & Gynecology
DX: Z34.93 Encounter for supervision of normal pregnancy, unspecified, third trimester (principal); Z3A.31 31 weeks gestation of pregnancy
CPT/HCPCS: 36415; 82951

== ENCOUNTER 2023-04-16 01:04 | Outpatient (CLI) | payer BC, SELFPAY ==
[2023-04-16 01:20] VITALS: BMI 51.0
[2023-04-16 01:58] LABS: Microscopic, Urine URINE MICROSCOPIC (MICROSCOPIC)
[2023-04-16 02:00] LABS: Appearance,Urine SL CLOUDY (Clear); Bilirubin,Urine Negative (Negative); Blood, Urine Negative (Negative); Color,Urine YELLOW (Yellow); Glucose,Urine (UA) Negative (Negative); Ketones,Urine Negative (Negative); Leukocyte Esterase,Urine Negative (Negative); Nitrate,Urine Negative (Negative); Protein,Urine 1+ (Negative); Specific Gravity, Urine >= 1.030 (1.005-1.030); Urobilinogen,Urine 0.2 EU/dl (0.2)
[2023-04-16 02:11] LABS: Benzodiazepines Screen,Urine Negative ng/ml (<200)
[2023-04-16 02:12] LABS: Amphetamine/Metha Screen,Urine Negative ng/ml (<1000); Bacteria,Urine 1+ /lpf; Squamous Epithelial Cell,Urine 20-50 #/hpf (0-5)
[2023-04-16 02:13] LABS: Barbiturates Screen,Urine Negative ng/ml (<200); Methadone Screen,Urine Negative ng/ml (<300)
[2023-04-16 02:14] LABS: Cannabinoid Screen,Urine Negative ng/ml (<50)
[2023-04-16 02:15] LABS: Cocaine Screen,Urine Negative ng/ml (<300); Opiate Screen,Urine Negative ng/ml (<300)
[2023-04-16 02:16] LABS: Phencyclidine Screen,Urine Negative ng/ml (<25)
[2023-04-16 02:17] VITALS: BP 129/52; PULSE 93; RESP 18; TEMP 36.8; O2SAT 97; BMI 51.0
== END 2023-04-16 03:00 | disposition home or self-care (01) ==
LOC: OBOUT 01:06 → OB 01:08
PROVIDERS: PCP Obstetrics & Gynecology; Visit Provider Obstetrics & Gynecology
DX: O26.893 Other specified pregnancy related conditions, third trimester (principal); Z3A.32 32 weeks gestation of pregnancy
CPT/HCPCS: 80305; 81001; G0463

== ENCOUNTER → 2023-04-20 14:55 | Outpatient (CLI) | payer BC, SELFPAY ==
--- NOTE | 2023-04-20 14:56 | US_ITS ---
PROCEDURE: US OB FOLLOW UP CLINICAL INDICATION: lga COMPARISON: US US OB FOLLOW UP from 02/27/2023 FINDINGS: Transabdominal sonographic images of the pelvis were obtained. The following parameters are obtained: From her established due date she is 32weeks 5days Viable fetus in the breech presentation with an anterior placenta placenta grade 1. The cervix measures 3.7 cm. heart rate: 150bpm bpm. BPD: 33weeks 5days OFD: 33weeks 4days HC: 33weeks 2days AC: 35weeks 2days FL: 31weeks 6days HC/AC: 0.96 Cephalic index: 0.79 FL/BPD: 0.73 FL/AC: 0.2 Amniotic fluid index: 15.42cm No obvious anomalies evident. profile seen, stomach, kidneys, nasion, three-vessel cord, appear normal. IMPRESSION: 1. Fetus in the breech presentation with an anterior placenta grade 1. 2. The fluid is within normal limits with an amniotic fluid index of 15.42 cm. 3. There has been accelerated growth with the AC currently 2-1/2 weeks ahead. 4. Limited anatomical scan appears normal. Dictated by: Alfredo Linda MD 04/22/2023 10:43 Alfredo Linda MD in [place] 04/22/2023 10:43
== END ==
PROVIDERS: PCP Obstetrics & Gynecology; Visit Provider Obstetrics & Gynecology
DX: O36.63X0 Maternal care for excessive fetal growth, third trimester, not applicable or unspecified (principal); Z3A.32 32 weeks gestation of pregnancy
CPT/HCPCS: 76816

== ENCOUNTER 2023-05-16 19:22 | Outpatient (CLI) | payer BC, SELFPAY ==
[2023-05-16 19:29] VITALS: BMI 51.0
[2023-05-16 19:40] VITALS: BP 133/66; PULSE 80; RESP 19; TEMP 37.1; O2SAT 97; BMI 51.0
[2023-05-16 19:53] LABS: Microscopic, Urine URINE MICROSCOPIC (MICROSCOPIC)
[2023-05-16 19:56] LABS: Appearance,Urine CLEAR (Clear); Bilirubin,Urine Negative (Negative); Blood, Urine Negative (Negative); Color,Urine YELLOW (Yellow); Glucose,Urine (UA) Negative (Negative); Ketones,Urine Negative (Negative); Leukocyte Esterase,Urine Negative (Negative); Nitrate,Urine Negative (Negative); Protein,Urine TRACE (Negative); Specific Gravity, Urine >= 1.030 (1.005-1.030); Urobilinogen,Urine 0.2 EU/dl (0.2)
[2023-05-16 20:02] LABS: Squamous Epithelial Cell,Urine Occasional #/hpf (0-5); WBC,Urine Occasional #/hpf (0-3)
[2023-05-16 20:07] LABS: Fetal Membrane Rupture (Rapid) Negative (Negative)
[2023-05-16 20:21] LABS: Barbiturates Screen,Urine Negative ng/ml (<200)
[2023-05-16 20:22] LABS: Benzodiazepines Screen,Urine Negative ng/ml (<200)
[2023-05-16 20:23] LABS: Amphetamine/Metha Screen,Urine Negative ng/ml (<1000); Cannabinoid Screen,Urine Negative ng/ml (<50)
[2023-05-16 20:24] LABS: Cocaine Screen,Urine Negative ng/ml (<300)
[2023-05-16 20:25] LABS: Methadone Screen,Urine Negative ng/ml (<300); Opiate Screen,Urine Negative ng/ml (<300)
[2023-05-16 20:26] LABS: Phencyclidine Screen,Urine Negative ng/ml (<25)
== END 2023-05-16 20:30 ==
LOC: OBOUT 19:23 → OB 19:24
PROVIDERS: PCP Nurse Practitioner Family; Visit Provider Obstetrics & Gynecology
DX: O47.03 False labor before 37 completed weeks of gestation, third trimester (principal); Z3A.36 36 weeks gestation of pregnancy
CPT/HCPCS: 59025; 80305; 81001; 84112; G0463

== ENCOUNTER 2023-06-02 04:32 | Inpatient (IN) | payer BC, SELFPAY ==
[2023-06-02] VITALS (9 sets, daily range): BP systolic 133–158; BP diastolic 65–90; PULSE 59–91; RESP 16–18; TEMP 36.4–36.6; O2SAT 98–100; BMI 52.0
[2023-06-02 05:42] LABS: Microscopic, Urine URINE MICROSCOPIC (MICROSCOPIC)
[2023-06-02 05:49] LABS: Basophils % 0.3 % (0.1-2.0); Eosinophils # 0.1 K/mm3 (0.0-0.4); Eosinophils % 0.9 % (0.1-12.0); Hematocrit 31.1 % (37.0-47.0); Lymphocytes # 2.5 K/mm3 (0.7-4.5); Lymphocytes % 18.5 % (10-50); Mean Corpuscular HGB Conc 32.2 g/dL (31.8-35.4); Mean Corpuscular Hemoglobin 20.7 pg (27.0-31.2); Mean Corpuscular Volume 64.3 fl (81-99); Mean Platelet Volume 9.1 fl (7.4-10.4); Monocytes # 1.2 K/mm3 (0.1-1.0); Monocytes % 8.7 % (1.7-9.3); Neutrophils # 9.8 K/mm3 (1.8-7.8); Neutrophils % 71.6 % (37.0-80.0); Platelet Count 279 K/mm3 (142-424); Red Blood Count 4.84 M/mm3 (4.20-5.40); Red Cell Distribution Width 18.7 % (11.5-17.5); White Blood Count 13.6 K/mm3 (4.8-10.8)
[2023-06-02 05:50] LABS: Appearance,Urine CLEAR (Clear); Bilirubin,Urine Negative (Negative); Blood, Urine Negative (Negative); Color,Urine YELLOW (Yellow); Glucose,Urine (UA) Negative (Negative); Ketones,Urine Negative (Negative); Leukocyte Esterase,Urine Negative (Negative); Nitrate,Urine Negative (Negative); PH,Urine 6.5 (5.0-8.5); Protein,Urine TRACE (Negative); Specific Gravity, Urine 1.025 (1.005-1.030); Urobilinogen,Urine 0.2 EU/dl (0.2)
[2023-06-02 05:55] LABS: Benzodiazepines Screen,Urine Negative ng/ml (<200)
[2023-06-02 05:56] LABS: Amphetamine/Metha Screen,Urine Negative ng/ml (<1000); Barbiturates Screen,Urine Negative ng/ml (<200)
[2023-06-02 05:57] LABS: Alanine Aminotransferase 16 U/L (12-78); Albumin Level 3.6 g/dl (3.5-5.0); Alkaline Phosphatase 135 U/L (38-126); Anion Gap 15.3 mEq/L (5-15); Aspartate Amino Transferase 26 U/L (14-36); Bilirubin,Total 0.3 mg/dl (0.2-1.3); Blood Urea Nitrogen 15 mg/dl (7-17); Calcium 9.6 mg/dl (8.4-10.2); Carbon Dioxide 18 mmol/L (22.0-30.0); Chloride 107 mmol/L (98-107); Creatinine Clearance Estimated 117 mL/min (50-200); Estimated Glomerular Filt Rate 104 ml/min (>60); GFR (African American) 125 ML/MIN (>60); Globulin 3.7 g/dL (1.3-3.2); Glucose 94 mg/dl (74-100); Potassium 4.3 mmoL/L (3.5-5.1); Sodium 136 mmol/L (136-145); Total Protein,Serum 7.3 g/dl (6.3-8.2)
[2023-06-02 05:57] LABS: Cannabinoid Screen,Urine Negative ng/ml (<50)
[2023-06-02 05:58] LABS: Cocaine Screen,Urine Negative ng/ml (<300); Methadone Screen,Urine Negative ng/ml (<300)
[2023-06-02 05:59] LABS: Bacteria,Urine 1+ /lpf; Mucus,Urine 1+ /lpf
[2023-06-02 05:59] LABS: Opiate Screen,Urine Negative ng/ml (<300); Phencyclidine Screen,Urine Negative ng/ml (<25)
--- NOTE | 2023-06-02 07:26 | EXP.OB.APHP ---
OB - H&P: HPI Antepartum History of Present Illness Chief complaint: Scheduled repeat History of present illness: Ms Pam Caro is a 22 yo at 38w6d who presents to [facility] Labor and Delivery for scheduled repeat and bilateral salpingectomy. History of x 1. She has gestational diabetes mellitus not well controlled. She is complete with child bearing and desire permanent sterilization. History of Present Criteria for establishing EDC:: based on 2nd trimester US only care: limited care Ultrasounds: normal mid trimester US Obstetrical complications: gestational diabetes and previous Labs Blood type: A (-) negative Rubella: nonimmune RPR/VDRL: nonreactive HBsAG: negative PFSH PFS Disclaimer: The information contained in this section may have been updated after the patient was seen, as this information can be updated by other users. Medical History (Updated 06/02/23 @ 09:45 by Asha Kennedy DO) Anemia affecting Breech presentation Chest pain Dizziness Gestational diabetes mellitus Maternal obesity affecting , antepartum with 38 completed weeks gestation Request for sterilization Rh negative state in antepartum period Rubella non-immune status, delivered, current hospitalization Surgical History Hx of section Hx of tonsillectomy Family History Other No significant family history Social History Smoking Status: Never smoker alcohol intake: never substance use type: denies use current occupational status: unemployed Travel in the last 8 weeks: None household members: family housing: house number of children: 0 Review of Systems Review of Systems Review of systems:: pertinent systems reviewed and negative unless documented below Meds Home Medications and Allergies Home Medications Medication Instructions Recorded Confirmed Type vitamins no.119-iron 1 tab PO DAILY Supplement 02/22/23 06/02/23 History fumarate 29 mg-folic acid 1 mg tablet New Prescriptions to Start Prescriptions: Allergies Allergy/AdvReac Type Severity Reaction Status Date / Time No Known Allergies Allergy Verified 05/31/23 15:46 OB - H&P: Exam Physical Exam Vital signs: Temp Pulse Resp BP Pulse Ox O2 Del Method 97.8 F 91 H 18 134/77 98 Room Air 06/02/23 05:48 06/02/23 05:48 06/02/23 05:48 06/02/23 05:48 06/02/23 05:48 06/02/23 05:48 Constitutional no acute distress and cooperative Routine HEENT Exam Head: Present normocephalic and atraumatic Eye: Absent conjunctivae pink ENT: Present mucous membranes moist Routine Neck Exam Present full ROM Routine Respiratory Exam Present CTA bilaterally and normal respiratory effort Routine Cardiovascular Exam Present RRR Routine Abdominal Exam Present soft (Gravid); Absent tenderness Routine Rectal Exam Patient deferred: visual exam Routine Exam External: Present normal urethra appearance; Absent tenderness, lesions or lacerations Routine Extremities Exam Present full ROM; Absent edema or calf tenderness Routine Neurological Exam Present alert, oriented X3 and moving all extremities OB - Results Labs Labs: Short CBC 06/02/23 Range/Units 05:10 WBC 13.6 H (4.8-10.8) K/mm3 Hgb 10.0 L (12.2-16.2) g/dL Hct 31.1 L (37.0-47.0) % Plt Count 279 (142-424) K/mm3 BMP 06/02/23 05:10 Sodium 136 Potassium 4.3 Chloride 107 Carbon Dioxide 18 L BUN 15 Creatinine 0.70 Glucose 94 Calcium 9.6 Liver Function 06/02/23 Range/Units 05:10 Total Bilirubin 0.3 (0.2-1.3) mg/dl AST 26 (14-36) U/L ALT 16 (12-78) U/L Alkaline Phosphatase 135 H (38-126) U/L Albumin 3.6 (3.5-5.0) g/dl Urine 06/02/23
--- NOTE | 2023-06-02 09:04 | HMH.PHAINT1 ---
Pharmacy Intervention Comments: MEDICATION RECONCILIATION COMPLETE USING MOST RECENT OB OFFICE VISIT.
--- NOTE | 2023-06-02 09:06 | EXP.OP.NOTE ---
Date of procedure: 06/02/23 Pre-op Diagnosis:: 1. IUP at 38w6d 2. Poorly controlled gestational diabetes mellitus 3. Maternal obesity 4. Anemia of 5. History of x 1 6. Requests permanent sterilization Post-op Diagnosis:: 1. IUP at 38w6d 2. Poorly controlled gestational diabetes mellitus 3. Maternal obesity 4. Anemia of 5. History of x 1 6. Requests permanent sterilization Procedure performed:: 1. Repeat Low Transverse Section, 2. Bilateral salpingectomy Surgeon:: Asha Kennedy DO Hose Maker(s):: Milena Pace DO TRIAGE RN:: Kwaku Rizvi Anesthesia: spinal Estimated blood loss (mL): 1,200 Clinical Note:: Ms Pam Caro is a 22 yo at 38w6d who presents to [facility] Labor and Delivery for scheduled repeat and bilateral salpingectomy. History of x 1. She has gestational diabetes mellitus not well controlled. She is complete with child bearing and desire permanent sterilization. Operative findings:: 1. Live male baby, Marie, weighing 9 lb 0 oz, APGARs 8 (1min), 9 (5 min) 2. Grossly normal appearing uterus, bilateral fallopian tubes and ovaries 3. Nuchal cord x 1 Operative note:: The risks, benefits and alternatives of the procedure were reviewed with the patient. Informed consent was obtained. Patient was taken to the operating room where spinal anesthesia was placed. The patient received 3 grams of Ancef preoperatively. Patient was placed in dorsal supine position with a leftward tilt. SCDs in place. Heath catheter was inserted and draining clear urine prior to the start of the procedure. heart tones were obtained. Patient was then prepped and draped in normal sterile fashion. Allis clamp test was performed to ensure adequate anesthesia. A Pfannenstiel skin incision was made 2 cm above pubic symphysis. This incision is above prior Pfannenstiel incision scar. This was carried through to underlying layer of fascia. Fascia was incised in midline, extended laterally with Francis scissors. Superior aspect of fascial incision was grasped with two Arabella clamps, elevated up, and rectus muscle dissected off bluntly and sharply with Francsi scissors. Inferior aspect of fascial incision was grasped with two Arabella clamps, elevated up, and rectus muscle dissected off bluntly and sharply with Francis scissors. The retcus muscle was then in the midline and the peritoneum was entered bluntly with a digit. Peritoneal incision was then extended superiorly and inferiorly with good visualization of the bladder. Ab retractor was inserted. The lower uterine segment was incised in a transverse fashion. Clear amniotic fluid was noted. Head was delivered without difficulty. Nuchal x 1 was easily reduced. Remainder of body was delivered without difficulty. Mouth and nares were bulb suctioned. Spontaneous cry was noted. Delayed cord clamping was performed for 60 seconds. The umbilical cord was clamped and cut. The infant was handed to awaiting pediatric staff in stable condition. Dr. Romeo was present. Apgars were 8(1 min), 9(5 min). Cord blood was obtained. Gentle traction on the umbilical cord and uterine fundal massage delivered the placenta. Placenta was intact. Placenta will be sent to pathology for review. Uterus was cleared of all clots and debris with a moist laparotomy sponge. Corners of the uterine incision were grasped with Allis clamps. The uterine incision was reapproximated with # 1 Vicryl suture in a running, locked stitch. Second layer of the same stitch was used to imbricate the incision. Large amount of bleeding noted with delivery of baby. 1 gram TXA was given to patient. Attention was then turned to the left fallopian tube, which was grasped with a Emily clamp. Enseal device was used to clamp, ligate and transect the right mesosalpinx and fallopian tube at uterine cornua,. Same procedure was carried out on the contralateral side. Uterine incision was reinspected. Shruthi
--- NOTE | 2023-06-02 09:15 | EXP.ANES.CKL ---
[facility] Disclaimer: The information contained in this section may have been updated after the patient was seen, as this information can be updated by other users. Medical History (Updated 05/31/23 @ 16:16 by Asha Kennedy DO) Anemia affecting Breech presentation Chest pain Dizziness Gestational diabetes mellitus Maternal obesity affecting , antepartum Request for sterilization Rh negative state in antepartum period Surgical History Hx of section Hx of tonsillectomy Family History Other No significant family history Social History Smoking Status: Never smoker alcohol intake: never substance use type: denies use current occupational status: unemployed Travel in the last 8 weeks: None household members: family housing: house number of children: 0 [facility] Anesthesia Checklist Patient Identification Patient Identification: Arm Band Structural Data Admitted From: Home Planned Operative Procedure/s: Repeat C/S, Bilateral Salpingectomy Consent for Planned Operative Procedure(s) Verified: Yes Verified Documents: Surgical Consent and History and Physical NPO Status Verified Time NPO: 00:00 Additional verifications Anesthesia Reactions: No Airway Assessment Mallampati Score:: Class II C-Spine Mobility Assessed: Yes TMJ Mobility Assessed: Yes Dentition: Good Dentition Neurological Assessment Level of Consciousness: Awake and Alert Anesthesia Plan Anesthesia Risk discussed: Yes Anesthesia Plan: Verified ASA Class: III Anesthesia Type: Spinal (with Bilateral TAP Block)
--- NOTE | 2023-06-02 09:17 | EXP.ANES.I ---
[facility] Anesthesia Record Part I Anesthesia Record I Intake, IV Amount: 2,000 Hydration: Adequate Estimated blood loss (mL): 1,200 Urine output (mL): 150 Blood Products used (#): none Blood Pressure: 148/71 SaO2: 100 Pulse Rate: 68 Airway Patency: Patent Respiratory Rate: 16 Temperature: 97.9 F Patient is:: Awake and Stable Stable to PACU at:: 09:00
[2023-06-03 07:30] LABS: Basophils % 0.2 % (0.1-2.0); Eosinophils # 0.1 K/mm3 (0.0-0.4); Eosinophils % 0.6 % (0.1-12.0); Hematocrit 23.7 % (37.0-47.0); Hemoglobin 7.5 g/dL (12.2-16.2); Lymphocytes # 2.3 K/mm3 (0.7-4.5); Lymphocytes % 18.6 % (10-50); Mean Corpuscular HGB Conc 31.8 g/dL (31.8-35.4); Mean Corpuscular Hemoglobin 20.8 pg (27.0-31.2); Mean Corpuscular Volume 65.4 fl (81-99); Mean Platelet Volume 10.6 fl (7.4-10.4); Monocytes # 1.1 K/mm3 (0.1-1.0); Monocytes % 8.5 % (1.7-9.3); Neutrophils % 72.1 % (37.0-80.0); Platelet Count 248 K/mm3 (142-424); Red Blood Count 3.62 M/mm3 (4.20-5.40); Red Cell Distribution Width 18.6 % (11.5-17.5); White Blood Count 12.5 K/mm3 (4.8-10.8)
[2023-06-03 09:30] VITALS: BP 121/59; PULSE 80; RESP 18; TEMP 36.8; O2SAT 100
--- NOTE | 2023-06-03 11:44 | EXP.OB.SPCS ---
OB - PN: Subj Interval history: Pam is a 22-year-old POD#1 from a repeat CD and BSG. No complications during delivery. She is doing well. Bottle feeding male infant, desires circumcision. Reports lochia is scant. She is ambulating, tolerating PO, voiding, and enodrses flatus. Denies dysuria. reports pain is controlled with PO regimen. mild incision pain and cramping uterine pain. No further complaints at this time Patient comments: no complaints, pain well controlled, incisional pain, tolerating diet and flatus present [place] baby status: doing well and bottle feeding well feeding status: exclusively bottle feeding OB - PN: Obj Exam Vital signs: Temp Pulse Resp BP Pulse Ox O2 Del Method 98.3 F 80 18 121/59 L 100 Room Air 06/03/23 09:30 06/03/23 09:30 06/03/23 09:30 06/03/23 09:30 06/03/23 09:30 06/03/23 09:30 Narrative: General: patient is alert oriented in no acute distress and responds appropriately to questions. Appears to be in minimal pain. resting in bed and doing well HEENT: NCAT, EOMI, moist mucous membranes, neck supple with full ROM Cardiovascular: RRR +S1/S2, no murmurs or rubs Pulmonary: Clear to auscultation bilaterally, nonlabored breathing, symmetric chest rise Abdominal: Fundus below the umbilicus, firm, and tenderness appropriate for the period. Extremities: trace edema, no tenderness or cyanosis noted Skin: Normal turgor, intact, warm.? Negative for erythema, pallor, petechia, or lesions Neurologic: Negative for sensory or motor deficit Psychiatric: Normal affect, normal thought process, good judgment and insight, no depression or anxious mood appreciated. Incision site: Mildly tender.? No oozing, bleeding, erythema, drainage or signs of infection appreciated Urinary Catheter Management Heath: Cath placed during this visit: no OB - PN: Obj Data Labs 06/03/23 07:20 06/02/23 05:10 Labs: Laboratory Results - last 24 hr 06/02/23 07:37: Urine Opiates Screen Negative, Urine Methadone Screen Negative, Ur Barbituates Screen Negative, Ur Phencyclidine Scrn Negative, Ur Amphetamines Screen Negative, U Benzodiazepines Scrn Negative, Urine Cocaine Screen Negative, U Marijuana (THC) Screen Negative 06/03/23 07:20: WBC 12.5 H, RBC 3.62 L D, Hgb 7.5 L, Hct 23.7 L, MCV 65.4 L, MCH 20.8 L, MCHC 31.8, RDW 18.6 H, Plt Count 248, MPV 10.6 H, Neut % (Auto) 72.1, Lymph % (Auto) 18.6, [place] % (Auto) 8.5, Eos % (Auto) 0.6, Baso % (Auto) 0.2, Neut # (Auto) 9.0 H, Lymph # (Auto) 2.3, [place] # (Auto) 1.1 H, Eos # (Auto) 0.1, Baso # (Auto) 0.0 OB - PN: A/P (1) with 38 completed weeks gestation: Status: Acute (2) Gestational diabetes mellitus: Problem details: poorly controlled Status: Acute (3) Maternal obesity affecting , antepartum: Status: Acute (4) Hx of section: Status: Acute (5) Request for sterilization: Status: Acute (6) Rh negative state in antepartum period: Status: Acute (7) Anemia affecting : Status: Acute (8) Rubella non-immune status, delivered, current hospitalization: Status: Acute Plan day: 1 Plan: routine postop care Comments: Stable. POD#1 s/p RLTCS and BSG -Doing well. VSS. Serial lochia and fundal checks. -A negative/antibody negative. Follow for RhoGAM status -Bottle feeding, male infant -Desires circumcision, peds urology to evaluate and complete -Contraception: BSG -Follow-up 2 weeks for routine visit and incision check #Anemia -Patient had a intraoperative hemorrhage -Received Venofer -Asymptomatic and doing well. Vitals are stable -Hemoglobin: 10.0-->7.5 -Continue monitoring. DC with Fe -EBL: 1200mL -Dispo: home tomorrow pending mother/infant status Time Spent With Patient Total time spent is greater than 50% in coordination of care (as documented) at patient's floo
[2023-06-03 20:15] VITALS: BP 111/56; PULSE 84; RESP 17; TEMP 36.6; O2SAT 97
[2023-06-04 04:00] VITALS: BP 116/57; PULSE 85; RESP 18; TEMP 36.6; O2SAT 97
[2023-06-04 08:24] LABS: Hematocrit 24.2 % (37.0-47.0); Hemoglobin 7.9 g/dL (12.2-16.2)
[2023-06-04 08:30] VITALS: BP 135/80; PULSE 95; RESP 20; TEMP 36.5; O2SAT 98
--- NOTE | 2023-06-04 09:54 | EXP.DC.SUM ---
General Admission date:: 06/02/23 Discharge date: 06/04/23 HPI HPI HPI: Ms Pam Caro is a 22 yo at 38w6d who presents to [facility] for scheduled repeat and bilateral salpingectomy. History of x 1. She has gestational diabetes mellitus not well controlled. She is complete with child bearing and desire permanent sterilization. Hospital Course Hospital Course Hospital Course: Pam is a 22-year-old POD#2 from a repeat CD and BSG. No complications during delivery. She is doing well. Bottle feeding male , desires circumcision. Reports lochia is scant. She is ambulating, tolerating PO, voiding, and endorses flatus. Denies dysuria. reports pain is controlled with PO regimen. mild incision pain and cramping uterine pain. No further complaints at this time. Patient desires discharge home. Routine discharge structure reviewed with patient in detail and she voiced understanding. All questions and concerns were addressed Exam Data for Last 24 hours Vital signs and Labs for Last 24 Hours: Temp Pulse Resp BP Pulse Ox O2 Del Method 97.7 F 95 H 20 135/80 98 Room Air 06/04/23 08:30 06/04/23 08:30 06/04/23 08:30 06/04/23 08:30 06/04/23 08:30 06/04/23 08:30 Laboratory Results - last 24 hr 06/04/23 08:14: Hgb 7.9 L, Hct 24.2 L I & O for Last 24 hours: Intake & Output 06/01/23 06/02/23 06/03/23 06/04/23 23:59 23:59 23:59 23:59 Intake Total 1999 Balance 1999 Weight 322 lb Narrative: General: patient is alert oriented in no acute distress and responds appropriately to questions. Appears to be in minimal pain. resting in bed and doing well HEENT: NCAT, EOMI, moist mucous membranes, neck supple with full ROM Cardiovascular: RRR +S1/S2, no murmurs or rubs Pulmonary: Clear to auscultation bilaterally, nonlabored breathing, symmetric chest rise Abdominal: Fundus below the umbilicus, firm, and tenderness appropriate for the period. Extremities: trace edema, no tenderness or cyanosis noted Skin: Normal turgor, intact, warm.? Negative for erythema, pallor, petechia, or lesions Neurologic: Negative for sensory or motor deficit Psychiatric: Normal affect, normal thought process, good judgment and insight, no depression or anxious mood appreciated. Incision site: Mildly tender.? No oozing, bleeding, erythema, drainage or signs of infection appreciated. Metal isabella in place and healing well Constitutional Constitutional: no acute distress *Routine HEENT Exam Head: Present normocephalic Eye: Present EOMI and PERRL ENT: Present mucous membranes moist *Routine Neck Exam Neck: Present supple; Absent lymphadenopathy *Routine Respiratory Exam Respiratory: Present CTA bilaterally *Routine Cardiovascular Exam Cardiovascular: Present RRR *Routine Abdominal Exam Abdominal: Present soft and normoactive bowel sounds; Absent tenderness *Routine Extremities Exam Extremities: Absent cyanosis, clubbing or edema *Routine Skin Exam Skin: Present warm; Absent rash *Routine Neurological Exam Neurological: Present alert and oriented X3 Results Data Completed and Pending Labs on day of discharge: Labs from last 24 hours 06/04/23 08:14 Hgb 7.9 L Hct 24.2 L DS: Diagnosis Discharge Diagnosis (1) with 38 completed weeks gestation: Status: Acute Code(s): Z3A.38 - 38 weeks gestation of (2) Gestational diabetes mellitus: Status: Acute Code(s): O24.419 - Gestational diabetes mellitus in , unspecified control Qualifiers: Gestational diabetes mellitus control: unspecified Trimester: third trimester Qualified Code(s): O24.419 - Gestational diabetes mellitus in , unspecified control Problem details: poorly controlled (3) Maternal obesity affecting , antepartum: Status: Acute Code(s): O99.210 - Obesity complicating
--- NOTE | 2023-06-07 10:35 | P.PNANES_ITS ---
[facility] Anesthesia Record Part II Anesthesia Record Part II Discharge Time: 09:30 Destination: Obstetric PACU nurse assessment reviewed?: Yes Patient Condition:: Good Anesthesia Complications:: None Swallowing reflex intact?: Yes Airway Patency: Patent Cyanosis?: No Blood Pressure: 133/66 SaO2: 100 Respiratory Rate: 18 Pulse Rate: 60 Temperature: 97.5 F Mental Status: Alert & Oriented Pain level:: 0 Nausea and/or vomitting:: None Intake, IV Amount: 0 Hydration: Adequate
[2023-06-07 10:36] VITALS: BP 133/66; PULSE 60; RESP 18; TEMP 36.4; O2SAT 100
== END 2023-06-04 11:45 | disposition home or self-care (01) | DRG 784 ==
PROVIDERS: Obstetrics & Gynecology; Admitting Provider Obstetrics & Gynecology; PCP Nurse Practitioner Family; Visit Provider Obstetrics & Gynecology
PROC: 10D00Z1 Extraction of Products of Conception, Low, Open Approach (ICD-10-PCS; principal; 2023-06-02 07:30)
DX: O34.211 Maternal care for low transverse scar from previous cesarean delivery (principal); D62 Acute posthemorrhagic anemia; Z37.0 Single live birth; O24.429 Gestational diabetes mellitus in childbirth, unspecified control; Z3A.38 38 weeks gestation of pregnancy; Z30.2 Encounter for sterilization; O99.214 Obesity complicating childbirth; O67.8 Other intrapartum hemorrhage; O69.81X0 Labor and delivery complicated by cord around neck, without compression, not applicable or unspecified; O90.81 Anemia of the puerperium
CPT/HCPCS: 59514; 58700; 36415; 59025; 80053; 80305; 81001; 85014; 85018; 85025; 86850; 88302; 88307; 90707; 94761; 96374; C9290; G0283; J1756; J2405

== ENCOUNTER 2023-08-20 09:02 | Emergency (ER) | payer BC, SELFPAY ==
[2023-08-20 09:04] VITALS: BP 127/70; PULSE 96; RESP 18; TEMP 36.9; O2SAT 97; BMI 48.7
--- NOTE | 2023-08-20 09:07 | PC.NURSE ---
DR WELSH AT BEDSIDE
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
[2023-08-20 09:15] LABS: Coronavirus 19, PCR Not Detected (NotDetected); Influenza A, PCR Not Detected (NotDetected); Influenza B, PCR Not Detected (NotDetected)
[2023-08-20] MEDS: ACETAMINOPHEN 500MG TAB 1000 MG PO (09:18)
[2023-08-20] MEDS: ONDANSETRON 4MG ODT 4 MG SL (09:19)
[2023-08-20 09:50] VITALS: BP 129/74; PULSE 90; RESP 18; TEMP 36.9; O2SAT 98
== END 2023-08-20 09:51 | disposition home or self-care (01) ==
PROVIDERS: Emergency Provider Emergency Medicine; PCP Nurse Practitioner Family
DX: R10.10 Upper abdominal pain, unspecified (principal); R11.2 Nausea with vomiting, unspecified
CPT/HCPCS: 87636; 99283

== ENCOUNTER 2023-08-25 08:01 | Outpatient (CLI) | payer BC, SELFPAY ==
--- NOTE | 2023-08-25 08:02 | US_ITS ---
FINAL REPORT CLINICAL HISTORY: abd pain, nausea, vomiting, diarrhea COMPARISON: None FINDINGS: The gallbladder shows no wall thickening, distention or stone disease. No biliary ductal dilatation is appreciated. No fluid collections are seen. There is fatty infiltration of the liver present. Limited portions of the right kidney are unremarkable. IMPRESSION: Fatty infiltration of the liver. No evidence of gallstones or biliary ductal dilatation. Reviewed, Interpreted and Dictated by Jennifer Brown MD Transcribed by Tyra Alcala Authenticated and [facility]
== END 2023-08-25 23:59 ==
LOC: RAD 08:02
PROVIDERS: PCP Nurse Practitioner Family; Visit Provider Nurse Practitioner Family
DX: R10.9 Unspecified abdominal pain (principal); R11.2 Nausea with vomiting, unspecified; R19.7 Diarrhea, unspecified
CPT/HCPCS: 76700

== ENCOUNTER 2024-03-29 00:27 | Emergency (ER) | payer BC, SELFPAY ==
--- NOTE | 2024-03-29 00:23 | ECG_ITS ---
APPROVED REPORT Exam: Resting ECG HR:96 bpm ECG Measurements Heart Rate 96 AXES TN 140 P 59 QRSd 102 QRS 71 QT 368 T 45 QTc 422 Conclusion SINUS RHYTHM NORMAL ECG Electronically signed by : TREE WELSH, 03/30/2024 06:44:04
[2024-03-29 00:27] VITALS: BP 184/78; PULSE 96; RESP 18; TEMP 37.2; O2SAT 97; BMI 53.2
--- NOTE | 2024-03-29 00:49 | XR_ITS ---
PROCEDURE INFORMATION: Exam: XR Chest Exam date and time: 03/29/2024 12:58 AM Age: 23 years old Clinical indication: Pain; Chest pressure; Additional info: Cp TECHNIQUE: Imaging protocol: Radiologic exam of the chest. Views: 2 views. COMPARISON: CR CXR2V XR chest 2V 10/10/2018 9:06 AM FINDINGS: Lungs: Unremarkable. No consolidation. Pleural spaces: Unremarkable. No pleural effusion. No pneumothorax. Heart/Mediastinum: Unremarkable. No cardiomegaly. Bones/joints: Unremarkable. IMPRESSION: No acute findings.
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
[2024-03-29 00:58] LABS: Basophils # 0.1 K/mm3 (0-0.2); Basophils % 0.6 % (0.1-2.0); Eosinophils # 0.3 K/mm3 (0.0-0.4); Eosinophils % 1.8 % (0.1-12.0); Hematocrit 31.9 % (37.0-47.0); Hemoglobin 9.6 g/dL (12.2-16.2); Lymphocytes # 2.6 K/mm3 (0.7-4.5); Lymphocytes % 16.9 % (10-50); Mean Corpuscular Hemoglobin 19.2 pg (27.0-31.2); Mean Platelet Volume 8.1 fl (7.4-10.4); Monocytes # 0.9 K/mm3 (0.1-1.0); Monocytes % 5.7 % (1.7-9.3); Neutrophils # 11.7 K/mm3 (1.8-7.8); Platelet Count 356 K/mm3 (142-424); Red Blood Count 4.99 M/mm3 (4.20-5.40); Red Cell Distribution Width 18.7 % (11.5-17.5); White Blood Count 15.5 K/mm3 (4.8-10.8)
[2024-03-29 01:01] LABS: Albumin Level 4.2 g/dl (3.5-5.0); Chloride 107 mmol/L (98-107)
[2024-03-29 01:02] LABS: HCG Qualitative, Serum Negative (Negative); Potassium 3.7 mmoL/L (3.5-5.1); Sodium 139 mmol/L (136-145)
[2024-03-29 01:04] LABS: Alanine Aminotransferase 23 U/L (12-78); Anion Gap 10.7 mEq/L (5-15); Aspartate Amino Transferase 30 U/L (14-36); Blood Urea Nitrogen 17 mg/dl (7-17); Carbon Dioxide 25 mmol/L (22.0-30.0); Creatinine Clearance Estimated 135 mL/min (50-200); Estimated Glomerular Filt Rate 123 ml/min (>60); GFR (African American) 149 ML/MIN (>60)
[2024-03-29 01:05] LABS: Albumin/Globulin Ratio 1.3 (1.1-1.8); Alkaline Phosphatase 72 U/L (38-126); Bilirubin,Total 0.4 mg/dl (0.2-1.3); Calcium 8.9 mg/dl (8.4-10.2); Globulin 3.3 g/dL (1.3-3.2); Glucose 126 mg/dl (74-100); Total Protein,Serum 7.5 g/dl (6.3-8.2)
[2024-03-29 01:09] LABS: MANUAL DIFFERENTIAL MANUAL DIFFERENTIAL (MANUAL DIFF)
[2024-03-29 01:19] LABS: Troponin I < 0.01 ng/ml (0.00-0.034)
[2024-03-29 01:22] LABS: Free T4 (Free Thyroxine) 1.06 ng/dl (0.78-2.19)
[2024-03-29 01:30] VITALS: BP 155/83; PULSE 89; O2SAT 97
[2024-03-29 01:36] LABS: Thyroid Stimulating Hormone 1.95 uIU/mL (0.465-4.68)
[2024-03-29 01:45] LABS: Eosinophils % 1 % (0-3); Lymphocytes % 22 % (10-50); Monocytes % 2 % (2-9); Neutrophils % 75 % (42-76); Total Cells Counted 100
[2024-03-29 01:47] LABS: Anisocytosis 1+; RBC Morphology Normal
--- NOTE | 2024-03-29 01:59 | PC.NURSE ---
Patient denies any return of symptoms at this time. Patient requests that she does not stay for 2nd troponin, notified provider. Provider to speak with patient.
--- NOTE | 2024-03-29 02:29 | PC.NURSE ---
Sent 2 hour troponin, notified lab and provider.
[2024-03-29 02:58] LABS: Troponin I < 0.01 ng/ml (0.00-0.034)
[2024-03-29 03:05] VITALS: BP 134/103; PULSE 100; RESP 19; TEMP 36.7; O2SAT 96
== END 2024-03-29 03:08 | disposition home or self-care (01) ==
PROVIDERS: Emergency Provider Emergency Medicine
DX: R07.9 Chest pain, unspecified (principal); R00.2 Palpitations; R11.0 Nausea; F17.210 Nicotine dependence, cigarettes, uncomplicated
CPT/HCPCS: 71046; 80050; 80053; 84439; 84443; 84484; 84703; 85007; 85025; 93005; 99285

== ENCOUNTER 2024-05-08 09:04 | Outpatient (CLI) | payer BC, SELFPAY | END 2024-05-08 23:59 | disposition home or self-care (01) | LOC: RT 09:05 | PROVIDERS: PCP Nurse Practitioner Family; Visit Provider Nurse Practitioner Family | DX: R00.2 Palpitations (principal) | CPT/HCPCS: 93225; 93227 ==

== ENCOUNTER 2024-09-25 15:35 | Outpatient (CLI) | payer SELFPAY ==
[2024-09-25 21:19] LABS: Coronavirus 19, PCR Not Detected (NotDetected); Human Rhinovirus Not Detected (NotDetected); Influenza A, PCR Not Detected (NotDetected); Influenza B, PCR Not Detected (NotDetected); Respiratory Syncytial Virus Not Detected (NotDetected)
== END 2024-09-25 23:59 | disposition home or self-care (01) ==
LOC: LAB.DROPOF 09-26 10:03
PROVIDERS: PCP Nurse Practitioner Family; Visit Provider Nurse Practitioner Family
DX: B34.9 Viral infection, unspecified (principal)
CPT/HCPCS: 87070; 87631

== ENCOUNTER 2025-02-28 20:26 | Emergency (ER) | payer OTHER, SELFPAY ==
[2025-02-28 20:43] VITALS: BP 146/78; PULSE 94; RESP 16; TEMP 37.1; O2SAT 97; BMI 38.4
--- NOTE | 2025-02-28 20:47 | XR_ITS ---
PROCEDURE INFORMATION: Exam: XR Left Tibia and Fibula Exam date and time: 02/28/2025 8:43 PM Age: 24 years old Clinical indication: Pain; Lower leg; Left; Additional info: Leg pain TECHNIQUE: Imaging protocol: Radiologic exam of the left tibia and fibula. Views: 2 views. COMPARISON: No relevant prior studies available. FINDINGS: Bones/joints: Normal. No acute fracture identified. Soft tissues: Normal. IMPRESSION: No acute findings.
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
--- OUTSIDE RECORDS SUMMARY | 2025-02-28 21:09 | XMS_ITS | Encounter Summary ---
Author Organization [employer] ([place], [place], [place], [place]) Address [address] [place] [address] Care Team Providers Care Home Security Alarm Installer Name Role Phone Unavailable Primary Care Provider Unavailabl e Encounter Details Date Type Department Care Team (Late st Contact Info) Description 11/26/2019 Transcribed Document [facility] [place] Family Medicine [facility] [place] [address] ProviderMarisa MD [facility] [place] [address] Social History Tobacco Use Types Packs/Day Years Used Date Smoking Tobacco: Never Assessed Comments Unknown Sex and Gender Information Value Date Recorded Sex Assigned at Female 01/18/2022 8:42 PM CDT Legal Sex Female 8:42 PM CDT Gender Identity Female 01/18/2022 8:42 PM CDT Sexual Orientation Not on file documented as of this encounter Miscellaneous Notes * Cerner Conversion Note - Historical ProviderMD - 11/26/2019 10:28 PM CDT ED Discharge Entered On: 11/26/2019 22:28 EDT Performed On: 11/26/2019 22:28 EDT by Alexandra Mcclain pharmaceutical sales Process Patient Disposition : Discharge Personal Belongings With Patient : Yes Patient Education Completed : Yes Teaching Evaluation : Verbalizes understanding IV Discontinued : Yes Nursing Documentation Completed : Yes Alexandra Mcclain RN - 11/26/2019 22:28 EDT ED Discharge Discharge To : Home with ambulatory/outpatient follow-up Mode Of Departure : Ambulatory Accompanied By : Mother Discharge Instructions Reviewed With, Opportunity For Questions Given : Patient, Mother Prescriptions Given to Patient : Yes Number of Prescriptions Given : 3 Alexandra Mcclain RN - 11/26/2019 22:28 EDT documented in this encounter Plan of Treatment Not on file documented as of this encounter Visit Diagnoses Not on filedocumented in this encounter
--- OUTSIDE RECORDS SUMMARY | 2025-02-28 21:09 | XMS_ITS | Encounter Summary ---
Author Organization [employer] ([place], [place], [place], [place]) Address [address] [place] [address] Care Team Providers Care Neuro Intensivist Physician Name Role Phone Unavailable Primary Care Provider Unavailabl e Encounter Details Date Type Department Care Team (Late st Contact Info) Description 11/26/2019 Transcribed Document [facility] Family Medicine [facility] [place] [address] ProviderMarisa MD [address] [place] [address] Social History Tobacco Use Types [...] Conversion Note - Historical ProviderMD - 11/26/2019 8:31 PM CDT Pain Assessment Entered On: 11/26/2019 22:11 EDT Performed On: 11/26/2019 22:11 EDT by Radha Ricks Paramedic Intervention Information: morphine Performed by Mikaela Lopez, RN on 11/26/2019 21:26:00 EDT morphine,4mg IV Push,Left Antecubital Vimal Pain Assessment Pain Assessment : Follow-up assessment Pain Scale Used : 0-10 Scale Radha Ricks Paramedic - 11/26/2019 22:11 EDT Pain Scale Intensity : 4 Radha Ricks Paramedic - 11/26/2019 22:11 EDT Image 4 - Images currently included in the form version of this document have not been included in the text rendition version of the form. documented in this encounter Plan of Treatment Not on file documented as of this encounter Visit Diagnoses Not on filedocumented in this encounter
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
--- OUTSIDE RECORDS SUMMARY | 2025-02-28 21:09 | XMS_ITS | Clinical Summary ---
Author Organization [employer] ([place], [place], [place], [place]) Address [address] [place] [address] Care Team Providers Care Platform Loader Name Role Phone Unavailable Primary Care Provider Unavailabl e Social History Tobacco Use Types Packs/Day Years Used Date Smoking Tobacco: Never Assessed Comments Unknown Sex and Gender Information Value Date Recorded Sex Assigned at Female 01/18/2022 8:42 PM CDT Legal Sex Female 8:42 PM CDT Gender Identity Female 01/18/2022 8:42 PM CDT Sexual Orientation Not on file Plan of Treatment Not on file
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
--- OUTSIDE RECORDS SUMMARY | 2025-02-28 21:09 | XMS_ITS | Encounter Summary ---
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 encounter Plan of Treatment Not on file documented as of this encounter Visit Diagnoses Not on filedocumented in this encounter
--- OUTSIDE RECORDS SUMMARY | 2025-02-28 21:09 | XMS_ITS | Referral Summary ---
Author Organization [email or web address] ([place], [place], [place], [place]) Address [address] [place] [address] Care Team Providers Care Sales Consultant Name Role Phone Unavailable Primary Care Provider [...]
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
--- OUTSIDE RECORDS SUMMARY | 2025-02-28 21:09 | XMS_ITS | Encounter Summary ---
Author Organization [employer] ([place], [place], [place], [place]) Address [address] [place] [address] Care Team Providers Care Performance Improvement Consultant Name Role Phone Unavailable Primary Care Provider Unavailabl e Encounter Details Date Type Department Care Team (Late st Contact Info) Description 11/26/2019 Transcribed Document [facility] [place] [address] [place] [address] ProviderMarisa MD [address] [place] [address] Social History Tobacco Use Types [...] Note - Marisa Appiah MD - 11/26/2019 10:[address] [facility] [place] [id number] PAM RODRIGUEZ :2000 Visit Time:11/26/2019 Your Visit [...] Ask your health care provider for a ywfh-cr-wcxi plan for gradually returning to activities. ??? [...] your friends, family, a trusted colleague, and damper worker about your injury, symptoms, and restrictions. Have them watch for any new or worsening problems. General instructions ??? Take txgf-gvs-qfdopdo and prescription medicines only as told by [...] 07/10/2006 Document Revised: 11/03/2017 Document Reviewed: 01/17/2017 [employer] Interactive Patient Education ?? 2019 [employer]. Sutures, Nohelia, or Adhesive Wound Closure [...] skin reaction that can lead to infection. Buckeye When nohelia are used to close a wound, the edges of your skin on both sides of the wound are brought close together. A staple is placed across the wound, and an instrument secures the staple edges together. Buckeye are often used to close surgical incisions. They are faster to use than sutures, and they cause less skin reaction. Buckeye need to be removed using a tool that bends the nohelia away from your skin. Follow these instructions at home: Medicines ??? Take gylh-ury-jqdfmpu and prescription medicines only as told by [...] and water are not available, use hand shoe stamper. ??? Do not try to remove your [...] 04/04/2002 Document Revised: 05/17/2018 Document Reviewed: 05/17/2018 ElseProblemcity[employer] Interactive Patient Education ?? 2019 [employer]. Emergency Awareness and Preventative Care STROKE [...] Assistance with quitting is available by contacting 9-124-ERVA-NOW. This is a free resource providing counseling, support, and referral. Or you may contact your personal physician. [employer] Suicide Prevention Lifeline: The National Suicide Prevention [...] was given the opportunity to ask questions. Patient/Office Machine Service Supervisor Name: Patient/Office Machine Service Supervisor Signature: Relationship to Patient: Clinician/Hospital Office Machine Service Supervisor Signature: Please Provide a Telephone Number Where You Can Be Reached: Is it Permissible To Leave a Message? Date: Electronically signed by Interface, [facility] Conversion Belting Inspector Demetri at 11/10/2022 12:11 AM CDT documented in this encounter Plan of Treatment Not on file documented as of this encounter Visit Diagnoses Not on filedocumented in this encounter
--- OUTSIDE RECORDS SUMMARY | 2025-02-28 21:09 | XMS_ITS | Encounter Summary ---
Author Organization [employer] ([place], [place], [place], [place]) Address [address] [place] [address] Care Team Providers Care Warp Dyeing Tender Name Role Phone Unavailable Primary Care Provider Unavailabl e Encounter Details Date Type Department Care Team (Late st Contact Info) Description 11/26/2019 Transcribed Document [facility] [place] Family Medicine [address] [place] [address] ProviderMarisa MD [address] [place] [address] Social History Tobacco Use Types [...] Conversion Note - Historical ProviderMD - 11/26/2019 8:13 PM CDT [place] Suicide Severity Rating Scale (C-SSRS) Entered On: 11/26/2019 20:30 EDT Performed On: 11/26/2019 20:28 EDT by RAS VAZQUEZ RN [place] Suicide Severity Rating Scale (C-SSRS) CSSRS Past Month Wish to be : No CSSRS Past Month Suicidal Thoughts : No CSSRS Lifetime Suicide Behavior : No Suicide Severity Rating Score : 0 Suicide Severity Rating : No Additional Care Required at this time RAS VAZQUEZ RN - 11/26/2019 20:28 EDT documented in this encounter Plan of Treatment Not on file documented as of this encounter Visit Diagnoses Not on filedocumented in this encounter
--- OUTSIDE RECORDS SUMMARY | 2025-02-28 21:09 | XMS_ITS | Encounter Summary ---
Author Organization [employer] ([place], [place], [place], [place]) Address [address] [place] [address] Care Team Providers Care Mogul Operator Name Role Phone Unavailable Primary Care Provider Unavailabl e Encounter Details Date Type Department Care Team (Late st Contact Info) Description 11/26/2019 Transcribed Document [facility] Radiology [address] [place] [address] Henna Scott MD [facility] Dept of Emergency Medicine [place] [id number] Social History Tobacco Use Types Packs/Day Years [...] Note - Henna Scott MD - 11/26/2019 11:21 PM EDT documented in this encounter Plan of Treatment Not on file documented as of this encounter Visit Diagnoses Not on filedocumented in this encounter
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
--- NOTE | 2025-02-28 23:27 | PC.NURSE ---
Patient left ER prior to obtaining dc vitals, and receiving dc paperwork.
[2025-02-28 23:28] VITALS: BP 00/00; PULSE 0; RESP 0; TEMP -17.7; TEMP 0; O2SAT 0
== END 2025-02-28 23:15 | disposition home or self-care (01) ==
PROVIDERS: Emergency Provider Student in an Organized Health Care Education/Training Program; PCP Nurse Practitioner Family
DX: M79.662 Pain in left lower leg (principal); F17.210 Nicotine dependence, cigarettes, uncomplicated
CPT/HCPCS: 73590; 99283

== ENCOUNTER 2025-04-23 12:35 | Outpatient (CLI) | payer OTHER, SELFPAY ==
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
--- OUTSIDE RECORDS SUMMARY | 2025-04-23 12:46 | XMS_ITS | Encounter Summary ---
Author Organization [employer] ([place], [place], [place], [place]) Address [address] [place] [address] Care Team Providers Care Printer Operator Name Role Phone Unavailable Primary Care Provider Unavailabl e Encounter Details Date Type Department Care Team (Late st Contact Info) Description 11/26/2019 Transcribed Document [facility] [place] [address] [place] [address] ProviderMarisa MD [address] [place] [address] Social History Tobacco Use Types [...] Appiah MD - 11/26/2019 10:21 PM CDT [facility] [place] [id number] PAM RODRIGUEZ :2000 Visit Time:11/26/2019 Your Visit [...] Ask your health care provider for a uqbn-gf-vqdr plan for gradually returning to activities. ??? [...] your friends, family, a trusted colleague, and lithopone mill worker about your injury, symptoms, and restrictions. Have them watch for any new or worsening problems. General instructions ??? Take ilsw-owr-yonbqlt and prescription medicines only as told by [...] 07/10/2006 Document Revised: 11/03/2017 Document Reviewed: 01/17/2017 [employer]ocket[employer] Interactive Patient Education ?? 2019 [employer]. Sutures, Nohelia, or Adhesive Wound Closure [...] skin reaction that can lead to infection. Nohelia When nohelia are used to close a wound, the edges of your skin on both sides of the wound are brought close together. A staple is placed across the wound, and an instrument secures the staple edges together. Burnt Cabins are often used to close surgical incisions. They are faster to use than sutures, and they cause less skin reaction. Burnt Cabins need to be removed using a tool that bends the nohelia away from your skin. Follow these instructions at home: Medicines ??? Take zucc-iyg-ebhqdlo and prescription medicines only as told by [...] and water are not available, use hand forging dies final finisher. ??? Do not try to remove your [...] 04/04/2002 Document Revised: 05/17/2018 Document Reviewed: 05/17/2018 ElseChorus Interactive Patient Education ?? 2019 [employer]. Emergency Awareness and Preventative Care STROKE [...] Assistance with quitting is available by contacting 3-777-XSQF-NOW. This is a free resource providing counseling, support, and referral. Or you may contact your personal physician. [email or web address] Suicide Prevention Lifeline: The National Suicide Prevention [...] was given the opportunity to ask questions. Patient/Emg Technician Name: Patient/Emg Technician Signature: Relationship to Patient: Clinician/Hospital Emg Technician Signature: Please Provide a Telephone Number Where You Can Be Reached: Is it Permissible To Leave a Message? Date: Electronically signed by Interface, [facility] Conversion Therapeutic Riding Instructor Demetri at 11/10/2022 12:09 AM CDT documented in this encounter Plan of Treatment Not on file documented as of this encounter Visit Diagnoses Not on filedocumented in this encounter
--- OUTSIDE RECORDS SUMMARY | 2025-04-23 12:46 | XMS_ITS | Encounter Summary ---
Author Organization [employer] ([place], [place], [place], [place]) Address [address] [place] [address] Care Team Providers Care Pediatric Psychiatrist Name Role Phone Unavailable Primary Care Provider Unavailabl e Encounter Details Date Type Department Care Team (Late st Contact Info) Description 11/26/2019 Transcribed Document [facility] [place] [address] [place] [address] ProviderMarisa MD [address] [place] [address] Social History Tobacco Use Types [...] Appiah MD - 11/26/2019 10:25 PM CDT [facility] [place] [id number] PAM RODRIGUEZ :2000 Visit Time:11/26/2019 Your Visit [...] Ask your health care provider for a sihj-mn-imbt plan for gradually returning to activities. ??? [...] your friends, family, a trusted colleague, and dish network installer about your injury, symptoms, and restrictions. Have them watch for any new or worsening problems. General instructions ??? Take zmlq-mlc-nsjeexz and prescription medicines only as told by [...] 07/10/2006 Document Revised: 11/03/2017 Document Reviewed: 01/17/2017 B[employer] Interactive Patient Education ?? 2019 [employer]. Sutures, Nohelia, or Adhesive Wound Closure [...] an instrument secures the staple edges together. [place] are often used to close surgical incisions. They are faster to use than sutures, and they cause less skin reaction. [place] need to be removed using a tool that bends the nohelia away from your skin. Follow these instructions at home: Medicines ??? Take ubca-fmh-bslxbcf and prescription medicines only as told by [...] and water are not available, use hand technical communication teacher. ??? Do not try to remove your [...] 04/04/2002 Document Revised: 05/17/2018 Document Reviewed: 05/17/2018 ElseReferrizer Interactive Patient Education ?? 2019 [employer]. Emergency Awareness and Preventative Care STROKE [...] Assistance with quitting is available by contacting 9-551-FOFX-NOW. This is a free resource providing counseling, support, and referral. Or you may contact your personal physician. [employer] Suicide Prevention Lifeline: The National Suicide Prevention [...] was given the opportunity to ask questions. Patient/Dean Of Boys Name: Patient/Dean Of Boys Signature: Relationship to Patient: Clinician/Hospital Dean Of Boys Signature: Please Provide a Telephone Number Where You Can Be Reached: Is it Permissible To Leave a Message? Date: Electronically signed by Interface, [facility] Conversion Roll Grinder Demetri at 11/10/2022 12:11 AM CDT documented in this encounter Plan of Treatment Not on file documented as of this encounter Visit Diagnoses Not on filedocumented in this encounter
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
--- OUTSIDE RECORDS SUMMARY | 2025-04-23 12:46 | XMS_ITS | Encounter Summary ---
Author Organization [employer] ([place], [place], [place], [place]) Address [address] [place] [address] Care Team Providers Care Children'S Literature Professor Name Role Phone Unavailable Primary Care Provider Unavailabl e Encounter Details Date Type Department Care Team (Late st Contact Info) Description 11/26/2019 Transcribed Document [facility] [place] Family Medicine [address] [place] [address] ProviderMarisa MD [address] [place] [address] Social History Tobacco Use Types [...] Historical ProviderMD - 11/26/2019 8:13 PM CDT [place] Suicide Severity Rating Scale (C-SSRS) Entered On: 11/26/2019 20:30 EDT Performed On: 11/26/2019 20:28 EDT by RAS VAZQUEZ RN [place] Suicide Severity Rating Scale (C-SSRS) CSSRS Past [...]
--- OUTSIDE RECORDS SUMMARY | 2025-04-23 12:46 | XMS_ITS | Referral Summary ---
Author Organization [employer] ([place], [place], [place], [place]) Address [address] [place] [address] Care Team Providers Care Logistics System Engineer Name Role Phone Unavailable Primary Care [...]
--- OUTSIDE RECORDS SUMMARY | 2025-04-23 12:46 | XMS_ITS | Encounter Summary ---
Author Organization [employer] ([place], [place], [place], [place]) Address [address] [place] [address] Care Team Providers Care Office Runner Name Role Phone Unavailable Primary Care Provider Unavailabl e Encounter Details Date Type Department Care Team (Late st Contact Info) Description 11/27/2019 Transcribed Document [facility] [place] [facility] [place] [address] ProviderMarisa MD [facility] [place] [address] Social History Tobacco Use Types [...]
--- OUTSIDE RECORDS SUMMARY | 2025-04-23 12:46 | XMS_ITS | Clinical Summary ---
Author Organization [employer] ([place], [place], [place], [place]) Address [address] [place] [address] Care Team Providers Care Building Maintenance Engineer Name Role Phone Unavailable Primary Care [...]
--- OUTSIDE RECORDS SUMMARY | 2025-04-23 12:46 | XMS_ITS | Encounter Summary ---
Author Organization [employer] ([place], [place], [place], [place]) Address [address] [place] [address] Care Team Providers Care Police Communications Operator Name Role Phone Unavailable Primary Care Provider Unavailabl e Encounter Details Date Type Department Care Team (Late st Contact Info) Description 11/26/2019 Transcribed Document [facility] [place] [facility] [place] [address] ProviderMarisa MD [facility] [place] [address] Social History Tobacco Use [...] On: 11/26/2019 22:28 EDT by Alexandra Mcclain mine technician Process Patient Disposition : Discharge Personal Belongings [...]
--- OUTSIDE RECORDS SUMMARY | 2025-04-23 12:46 | XMS_ITS | Clinical Summary ---
Author Organization [facility] Address [address] [place] [address] Care Team Providers Care Teacher Dancing Name Role Phone Nishant Davidson APRN Primary Care Provider +1- [phone] Allergies No known active allergies Medications Vit-Fe [...] UKY-Adult SDOH Screenings 10/29/2017 UKY-Pap Smear 10/29/2020 [id number] Vaccine ( - season) 2025 UKY-Influenza Vaccine (#1) 2025 UKY-DTaP,Tdap,and Td Vaccines [...] age to complete this topic Care Teams Teacher Dancing Relationship Specialty Start Date End Date iNshant Davidson, JOÃO [address] [place] [id number] PCP - General 12/04/20
--- OUTSIDE RECORDS SUMMARY | 2025-04-23 12:46 | XMS_ITS | Encounter Summary ---
Author Organization [employer] ([place], [place], [place], [place]) Address [address] [place] [address] Care Team Providers Care Line Construction Supervisor Name Role Phone Unavailable Primary Care Provider Unavailabl e Encounter Details Date Type Department Care Team (Late st Contact Info) Description 11/26/2019 Transcribed Document [facility] [place] [facility] [place] [address] ProviderMarisa MD [address] [place] [address] Social History Tobacco Use Types [...] Communication Barrier : None Primary Language : Mohawk Any Spiritual/Cultural Needs or Requests : No [...] : Regular Pupil Reaction, Right : Brisk Marysol Coma Scale Link : Open GCS Neurological Assessment Comment : Pt states the back of her head hurts, laceration present. Bleeding controlled. Patient denies LOC. RAS VAZQUEZ RN - 11/26/2019 20:28 EDT Marysol Coma Marysol Best Motor Response : Obey commands Marysol Best Verbal Response : Oriented Marysol Eye Opening Response : Spontaneous Marysol Coma Score : 15 RAS VAZQUEZ RN - 11/26/2019 20:28 EDT Electronically signed by Katherine Matthew Conversion Cylinder Machine Operator Pulp Drier Cerner at 11/10/2022 12:26 AM CDT documented in this encounter Plan of Treatment Not on file documented as of this encounter Visit Diagnoses Not on filedocumented in this encounter
--- OUTSIDE RECORDS SUMMARY | 2025-04-23 12:46 | XMS_ITS | Encounter Summary ---
Author Organization [employer] ([place], [place], [place], [place]) Address [address] [place] [address] Care Team Providers Care Offset Label Rewinder Name Role Phone Unavailable Primary Care Provider Unavailabl e Encounter Details Date Type Department Care Team (Late st Contact Info) Description 11/26/2019 Transcribed Document [facility] Radiology [address] [place] [address] Henna Scott MD One [facility] Dept of Emergency Medicine [place] [id number] Social History Tobacco Use Types Packs/Day Years [...]
[2025-04-23 14:03] LABS: Chloride 104 mmol/L (98-107); Potassium 4.7 mmoL/L (3.5-5.1); Sodium 140 mmol/L (136-145)
[2025-04-23 14:04] LABS: Alanine Aminotransferase 16 U/L (12-78); Albumin Level 4.1 g/dl (3.5-5.0); Alkaline Phosphatase 92 U/L (38-126); Anion Gap 14.7 mEq/L (5-15); Aspartate Amino Transferase 19 U/L (14-36); Bilirubin,Direct 0.2 mg/dl (0.0-0.4); Bilirubin,Indirect 0.2 mg/dL (0.0-0.9); Bilirubin,Total 0.4 mg/dl (0.2-1.3); Bilirubin,Unconjugated 0.3 mg/dL (0.0-1.1); Blood Urea Nitrogen 16 mg/dl (7-17); Calcium 9.4 mg/dl (8.4-10.2); Carbon Dioxide 26 mmol/L (22.0-30.0); Cholesterol 174 mg/dl (140-200); Creatinine,Serum 0.70 mg/dl (0.52-1.04); Estimated Glomerular Filt Rate 102 ml/min (>60); GFR (African American) 123 ML/MIN (>60); Glucose 90 mg/dl (74-100); HDL Cholesterol 50 mg/dl (40-60); Magnesium 1.7 mg/dl (1.6-2.3); Total Protein,Serum 6.9 g/dl (6.3-8.2); Triglycerides 88 mg/dl (30-150)
[2025-04-23 14:19] LABS: Free T4 (Free Thyroxine) 1.35 ng/dl (0.78-2.19)
[2025-04-23 14:22] LABS: Hematocrit 34.8 % (37.0-47.0); Hemoglobin 10.5 g/dL (12.2-16.2); Mean Corpuscular HGB Conc 30.2 g/dL (31.8-35.4); Mean Corpuscular Hemoglobin 20.3 pg (27.0-31.2); Mean Corpuscular Volume 67.2 fl (81-99); Platelet Count 371 K/mm3 (142-424); Red Blood Count 5.18 M/mm3 (4.20-5.40); White Blood Count 13.2 K/mm3 (4.8-10.8)
[2025-04-23 14:32] LABS: Thyroid Stimulating Hormone 1.60 uIU/mL (0.465-4.68)
[2025-04-23 15:02] LABS: Microcytosis 2+; Total Cells Counted 100
== END 2025-04-23 23:59 | disposition home or self-care (01) ==
LOC: LAB 12:36
PROVIDERS: PCP Nurse Practitioner Family; Visit Provider Nurse Practitioner
DX: I10 Essential (primary) hypertension (principal); R42 Dizziness and giddiness; E66.9 Obesity, unspecified; R06.83 Snoring; R00.2 Palpitations; M79.606 Pain in leg, unspecified
CPT/HCPCS: 36415; 80048; 80061; 80076; 83735; 84439; 84443; 85007; 85014; 85018; 85048; 85049; 93270

== ENCOUNTER 2025-05-08 14:40 | Outpatient (CLI) | payer OTHER, SELFPAY ==
--- NOTE | 2025-05-08 14:30 | CA_ITS ---
APPROVED REPORT EXAM: Comprehensive 2D, Doppler, and color-flow Echocardiogram Sand Conditioner: Laura Rich, RCS, RVS Ht: 4 ft 6 in Wt: 332lbs BSA: 2.15 BP: 164/92 mmHg Indications: HTN, Smoker, SOA, Snoring 2D Dimensions IVSd 1.25 cm F: 0.6-1.0 LVEF (Visual) 65.40 % PWd 1.05 cm F: 0.6 - 1.0 LA Volume 67.40 mL LVDd 5.53 cm F: 3.9 - 5.3 LA Volume Index 31.35 mL/m2 (M/F) 16-34 LVDs 3.52 cm F: 2.2 - 3.5 Left Atrium 3.52 cm F: 2.7 - 3.8 M-Mode Dimensions RVDd 2.65 cm (0.9-2.6) LA Diam 4.40 cm (1.9-4.0) LVDd 4.47 cm (3.5-5.7) LVDs 3.08 cm (3.5-5.7) IVSd 1.47 cm (0.6-1.1) PWd 1.11 cm (0.6-1.1) EF (Teich) 59.00% EPSs 0.32 cm FS 31.10% EDV (Teich) 91.00 mL TAPSE 2.47 (<1.7) ESV (Teich) 37.30 mL LV Diastology E Decel Time 223 (160-240 msec) E/A Ratio 0.8 MED A' 13.70 cm/s LAT A' 10.20 cm/s Aortic Valve AKBAR Index 1.20 cm2/m2 AoV Peak Juan. 169.0 (50-130 cm/s) AO Peak GR. 11.40 mmHg AO Mean GR. 5.70 (<5 mmHg) AO VTI 27.5 (18-25 cm) AKBAR (VTI) 2.65 (2.5-4.5 cm2) Mitral Valve MV E Max Juan. 57.0 (40-130 cm/s) MV A Velocity 71.0 (40-130 cm/s) E/A Ratio 0.80 MV PHT 65.0 ms Left Ventricle The left ventricle is normal size. Left ventricular systolic function is normal. The left ventricular ejection fraction is within the normal range. There is normal left ventricular wall thickness. There is normal LV segmental wall motion. The left ventricular diastolic function is normal. LVEF is 55% Right Ventricle The right ventricle is normal size. The right ventricular systolic function is normal. Atria The left atrium size is normal. The right atrium size is normal. Color Doppler is indeterminate for evaluation of interatrial shunt. Aortic Valve The aortic valve opens well. There is no hemodynamically significant aortic valvular stenosis. Trace aortic regurgitation is present. Mitral Valve The mitral valve is normal in structure. No evidence of mitral valve stenosis. Trace mitral regurgitation is present. Tricuspid Valve The tricuspid valve leaflets are thin and pliable. Trace tricuspid regurgitation. RVSP is 20-25 mmHg. Pulmonic Valve The pulmonary valve is grossly normal in structure. Trace pulmonic valve regurgitation is present. Great Vessels The aortic root is normal in size. IVC is normal in size and collapses >50% with inspiration. Pericardium There is no pericardial effusion. Other Information Study Quality: Fair Conclusion Normal biventricular systolic function. No significant valvular stenosis or regurgitation. Color Doppler is indeterminate for evaluation of interatrial shunt. Electronically signed by : Lizabeth Mays MD 05/14/2025 13:43:57
--- OUTSIDE RECORDS SUMMARY | 2025-05-08 14:48 | XMS_ITS | Encounter Summary ---
Author Organization [employer] ([place], [place], [place], [place]) Address [address] [place] [address] Care Team Providers Care Radiographer Angiogram Name Role Phone Unavailable Primary Care Provider Unavailabl e Encounter Details Date Type Department Care Team (Late st Contact Info) Description 11/26/2019 Transcribed Document [facility] [place] [facility] [place] [address] ProviderMarisa MD [address] [place] [address] Social History Tobacco Use Types [...] Communication Barrier : None Primary Language : Ivorian Any Spiritual/Cultural Needs or Requests : No [...] Marysol Best Motor Response : Obey commands [place] Best Verbal Response : Oriented Marysol Eye Opening Response : Spontaneous Marysol Coma Score : 15 RAS VAZQUEZ RN - 11/26/2019 20:28 EDT documented in this encounter Plan of Treatment Not on file documented as of this encounter Visit Diagnoses Not on filedocumented in this encounter
--- OUTSIDE RECORDS SUMMARY | 2025-05-08 14:48 | XMS_ITS | Encounter Summary ---
Author Organization [employer] ([place], [place], [place], [place]) Address [address] [place] [address] Care Team Providers Care Inspector Radar And Electronics Name Role Phone Unavailable Primary Care Provider Unavailabl e Encounter Details Date Type Department Care Team (Late st Contact Info) Description 11/26/2019 Transcribed Document [facility] [place] Family Medicine [address] [place] [address] ProviderMarisa MD [address] [place] [address] Social History Tobacco Use Types [...] Historical ProviderMD - 11/26/2019 8:13 PM CDT [place] Suicide Severity Rating Scale (C-SSRS) Entered On: 11/26/2019 20:30 EDT Performed On: 11/26/2019 20:28 EDT by RAS VAZQUEZ RN [place] Suicide Severity Rating Scale (C-SSRS) CSSRS Past [...]
--- OUTSIDE RECORDS SUMMARY | 2025-05-08 14:48 | XMS_ITS | Encounter Summary ---
Author Organization [employer] ([place], [place], [place], [place]) Address [address] [place] [address] Care Team Providers Care Assembler Cards And Announcements Name Role Phone Unavailable Primary Care Provider Unavailabl e Encounter Details Date Type Department Care Team (Late st Contact Info) Description 11/26/2019 Transcribed Document [facility] [place] Medicine [facility] [place] [address] ProviderMarisa MD [facility] [place] [address] Social History Tobacco Use Types [...] On: 11/26/2019 22:28 EDT by Alexandra Mcclain police sergeant precinct Process Patient Disposition : Discharge Personal Belongings [...]
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
--- OUTSIDE RECORDS SUMMARY | 2025-05-08 14:48 | XMS_ITS | Encounter Summary ---
Author Organization [employer] ([place], [place], [place], [place]) Address [address] [place] [address] Care Team Providers Care Fusion Analyst Name Role Phone Unavailable Primary Care Provider Unavailabl e Encounter Details Date Type Department Care Team (Late st Contact Info) Description 11/26/2019 Transcribed Document [facility] [place] Medicine [facility] [place] [address] ProviderMarisa MD [address] [place] [address] Social History Tobacco Use Types [...]
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
--- OUTSIDE RECORDS SUMMARY | 2025-05-08 14:48 | XMS_ITS | Encounter Summary ---
Author Organization [employer] ([place], [place], [place], [place]) Address [address] [place] [address] Care Team Prov[address] Care Court Orderly Name Role Phone Unavailable Primary Care Provider Unavailabl e Encounter Details Date Type Department Care Team (Late st Contact Info) Description 11/26/2019 Transcribed Document [facility] Radiology [address] [place] [address] Henna Scott MD One [facility] Dept of Emergency Medicine [place] [id number] Social History Tobacco Use Types Packs/Day Years [...]
--- OUTSIDE RECORDS SUMMARY | 2025-05-08 14:48 | XMS_ITS | Encounter Summary ---
Author Organization [email or web address] ([place], [place], [place], [place]) Address [address] [place] [address] Care Team Providers Care Sewing Machine Operator Paper Bags Name Role Phone Unavailable Primary Care Provider Unavailabl e Encounter Details Date Type Department Care Team (Late st Contact Info) Description 11/26/2019 Transcribed Document [facility] [place] Family Medicine [address] [place] [address] ProviderMarisa MD [address] [place] [address] Social History Tobacco Use Types [...] Appiah MD - 11/26/2019 10:21 PM CDT [facility] [place] [id number] PAM RODRIGUEZ :2000 Visit Time:11/26/2019 Your Visit [...] Ask your health care provider for a gsjo-jf-gfbu plan for gradually returning to activities. ??? [...] your friends, family, a trusted colleague, and police worker about your injury, symptoms, and restrictions. Have them watch for any new or worsening problems. General instructions ??? Take diey-uuh-ebdaaug and prescription medicines only as told by [...] 07/10/2006 Document Revised: 11/03/2017 Document Reviewed: 01/17/2017 [employer] Interactive Patient Education ?? 2019 [employer] Sutures, [place], or Adhesive Wound Closure Wound closure refers [...] skin reaction that can lead to infection. [place] When nohelia are used to close a wound, the edges of your skin on both sides of the wound are brought close together. A staple is placed across the wound, and an instrument secures the staple edges together. Nohelia are often used to close surgical incisions. They are faster to use than sutures, and they cause less skin reaction. [place] need to be removed using a tool that bends the nohelia away from your skin. Follow these instructions at home: Medicines ??? Take odkz-blg-folggez and prescription medicines only as told by [...] and water are not available, use hand blister pack operator. ??? Do not try to remove your [...] 04/04/2002 Document Revised: 05/17/2018 Document Reviewed: 05/17/2018 [employer] Interactive Patient Education ?? 2019 [employer] Emergency Awareness and Preventative Care STROKE [...] Assistance with quitting is available by contacting 1-109-STLK-NOW. This is a free resource providing counseling, support, and referral. Or you may contact your personal physician. [employer] Suicide Prevention Lifeline: The National Suicide Prevention [...] was given the opportunity to ask questions. Patient/Teacher Of The Sight Impaired Name: Patient/Teacher Of The Sight Impaired Signature: Relationship to Patient: Clinician/Hospital Teacher Of The Sight Impaired Signature: Please Provide a Telephone Number Where You Can Be Reached: Is it Permissible To Leave a Message? Date: Electronically signed by Interface, [facility] Conversion Otr [employer] Truck Driver Demetri at 11/10/2022 12:09 AM CDT documented in this encounter Plan of Treatment Not on file documented as of this encounter Visit Diagnoses Not on filedocumented in this encounter
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
--- OUTSIDE RECORDS SUMMARY | 2025-05-08 14:48 | XMS_ITS | Encounter Summary ---
Author Organization [employer] ([place], [place], [place], [place]) Address [address] [place] [address] Care Team Providers Care Motor Brakeman Name Role Phone Unavailable Primary Care Provider Unavailabl e Encounter Details Date Type Department Care Team (Late st Contact Info) Description 11/27/2019 Transcribed Document [facility] [place] [facility] [place] [address] ProviderMarisa MD [facility] [place] [address] Social History Tobacco Use Types [...] by Provider, No further action required x1 Electronically signed by Katherine Matthew Conversion Milling Machine Operator Gear Cerner at 11/10/2022 12:03 AM CDT documented in this encounter Plan of Treatment Not on file documented as of this encounter Visit Diagnoses Not on filedocumented in this encounter
--- OUTSIDE RECORDS SUMMARY | 2025-05-08 14:48 | XMS_ITS | Clinical Summary ---
Author Organization [employer] ([place], [place], [place], [place]) Address [address] [place] [address] Care Team Providers Care Elementary [employer] Principal Name Role Phone Unavailable Primary Care Provider [...]
--- OUTSIDE RECORDS SUMMARY | 2025-05-08 14:48 | XMS_ITS | Referral Summary ---
Author Organization [employer] ([place], [place], [place], [place]) Address [address] [place] [address] Care Team Providers Care Rn Hemo Dialysis Name Role Phone Unavailable Primary Care Provider [...]
--- OUTSIDE RECORDS SUMMARY | 2025-05-08 14:48 | XMS_ITS | Encounter Summary ---
Author Organization [employer] ([place], [place], [place], [place]) Address [address] [place] [address] Care Team Providers Care Tourist Agent Name Role Phone Unavailable Primary Care Provider Unavailabl e Encounter Details Date Type Department Care Team (Late st Contact Info) Description 11/26/2019 Transcribed Document [facility] [place] Family Medicine [address] [place] [address] ProviderMarisa MD [address] [place] [address] Social History Tobacco Use Types [...] Appiah MD - 11/26/2019 10:25 PM CDT [facility] [place] [id number] PAM RODRIGUEZ :2000 Visit Time:11/26/2019 Your Visit [...] Ask your health care provider for a wwdy-dh-aleg plan for gradually returning to activities. ??? [...] your friends, family, a trusted colleague, and mobile home lot utility worker about your injury, symptoms, and restrictions. Have them watch for any new or worsening problems. General instructions ??? Take gnck-knc-zclifbv and prescription medicines only as told by [...] 07/10/2006 Document Revised: 11/03/2017 Document Reviewed: 01/17/2017 [employer] Interactive Patient Education ?? 2019 [employer] Sutures, [place], or Adhesive Wound Closure Wound closure refers [...] skin reaction that can lead to infection. [place] When nohelia are used to close a wound, the edges of your skin on both sides of the wound are brought close together. A staple is placed across the wound, and an instrument secures the staple edges together. Nohelia are often used to close surgical incisions. They are faster to use than sutures, and they cause less skin reaction. [place] need to be removed using a tool that bends the nohelia away from your skin. Follow these instructions at home: Medicines ??? Take ktds-fii-fkmojxk and prescription medicines only as told by [...] and water are not available, use hand assistant professor of dietetics. ??? Do not try to remove your [...] 04/04/2002 Document Revised: 05/17/2018 Document Reviewed: 05/17/2018 Else[employer]vel [employer] Interactive Patient Education ?? 2019 [employer] Inc. Emergency Awareness and Preventative Care STROKE [...] Assistance with quitting is available by contacting 8-727-KKSV-NOW. This is a free resource providing counseling, support, and referral. Or you may contact your personal physician. [employer] Suicide Prevention Lifeline: The National Suicide Prevention [...] was given the opportunity to ask questions. Patient/Magnetic Testing Technician Name: Patient/Magnetic Testing Technician Signature: Relationship to Patient: Clinician/Hospital Magnetic Testing Technician Signature: Please Provide a Telephone Number Where You Can Be Reached: Is it Permissible To Leave a Message? Date: Electronically signed by Interface, [facility] Conversion Guest Service Representative Demetri at 11/10/2022 12:11 AM CDT documented in this encounter Plan of Treatment Not on file documented as of this encounter Visit Diagnoses Not on filedocumented in this encounter
== END 2025-05-08 23:59 | disposition home or self-care (01) ==
LOC: RT 14:41
PROVIDERS: PCP Nurse Practitioner Family; Visit Provider Nurse Practitioner
DX: R06.02 Shortness of breath (principal); I10 Essential (primary) hypertension; R06.83 Snoring; F17.200 Nicotine dependence, unspecified, uncomplicated
CPT/HCPCS: 93306

== ENCOUNTER 2025-05-26 12:20 | Outpatient (CLI) | payer OTHER, SELFPAY ==
--- OUTSIDE RECORDS SUMMARY | 2025-05-26 12:25 | XMS_ITS | Clinical Summary ---
Author Organization [facility] Address [address] [place] [address] Care Team Providers Care Knitting Inspector Name Role Phone Nishant Davidson APRN Primary Care Provider [phone]- [phone] Allergies No known active allergies Medications Vit-Fe [...] [facility]-Adult SDOH Screenings 10/29/2017 [facility]-Pap Smear 10/29/2020 [id number]-10 Vaccine (1 - season) 2025 [facility]-Influenza Vaccine [...] age to complete this topic Care Teams Knitting Inspector Relationship Specialty Start Date End Date Nishant Davidson APRN [address] [place] [address] PCP - General 12/04/20
--- OUTSIDE RECORDS SUMMARY | 2025-05-26 12:25 | XMS_ITS | Encounter Summary ---
Author Organization [employer] ([place], [place], [place], [place], [place]) Address [address] [place] [address] Care Team Providers Care Project Specialist Name Role Phone Unavailable Primary Care Provider Unavailabl e Encounter Details Date Type Department Care Team (Late st Contact Info) Description 11/26/2019 Transcribed Document [facility] [place] Family Medicine [address] [place] [address] ProviderMarisa MD [address] [place] [address] Social History Tobacco Use Types [...] Conversion Note - Marisa ProviderMD - 11/26/2019 8:31 PM CDT Pain Assessment Entered On: 11/26/2019 22:11 EDT Performed On: 11/26/2019 22:11 EDT by Radha Ricks Paramedic Intervention Information: morphine Performed by Mikaela Lopez, RN on 11/26/2019 21:26:00 EDT morphine,4mg IV Push,Left Antecubital [place] Pain Assessment Pain Assessment : Follow-up assessment Pain Scale Used : 0-10 Scale Radha Ricks Paramedic - 11/26/2019 22:11 EDT Pain Scale Intensity : 4 Radha Ricks Paramedic - 11/26/2019 22:11 EDT Image 4 - Images currently included in the form version of this document have not been included in the text rendition version of the form. Electronically signed by Katherine Matthew Conversion Amusement Centre Manager Demetri at 11/10/2022 12:13 AM CDT documented in this encounter Plan of Treatment Not on file documented as of this encounter Visit Diagnoses Not on filedocumented in this encounter
--- OUTSIDE RECORDS SUMMARY | 2025-05-26 12:25 | XMS_ITS | Encounter Summary ---
Author Organization [employer] ([place], [place], [place], [place], [place]) Address [address] [place] [address] Care Team Providers Care Staff Veterinarian Name Role Phone Unavailable Primary Care Provider Unavailabl e Encounter Details Date Type Department Care Team (Late st Contact Info) Description 11/26/2019 Transcribed Document [facility] [place] Family Medicine [address] [place] [address] ProviderMarisa MD [address] [place] [address] Social History Tobacco Use Types [...] On: 11/26/2019 22:28 EDT by Alexandra Mcclain scrap metal processing worker Process Patient Disposition : Discharge Personal Belongings [...] Alexandra Mcclain RN - 11/26/2019 22:28 EDT Electronically signed by Katherine Matthew Conversion Senior Electrical Designer Cerner at 11/10/2022 12:12 AM CDT documented in this encounter Plan of Treatment Not on file documented as of this encounter Visit Diagnoses Not on filedocumented in this encounter
--- OUTSIDE RECORDS SUMMARY | 2025-05-26 12:25 | XMS_ITS | Encounter Summary ---
Author Organization [employer] ([place], [place], [place], [place], [place]) Address [address] [place] [address] Care Team Providers Care Chartered Financial Analyst Name Role Phone Unavailable Primary Care Provider Unavailabl e Encounter Details Date Type Department Care Team (Late st Contact Info) Description 11/26/2019 Transcribed Document [facility] [place] [address] [place] [address] ProviderMarisa MD [address] [place] [address] Social History Tobacco Use Types [...] Communication Barrier : None Primary Language : Trinidadian Any Spiritual/Cultural Needs or Requests : No [...] Cardiovascular ASMT, ED Cardiovascular Assessment WDL : WDL Cardiovascular Symptoms : None Chest Pain : No RAS VAZQUEZ RN - 11/26/2019 20:28 EDT Respiratory Respiratory Assessment WDL : WDL RAS VAZUQEZ RN - 11/26/2019 20:28 EDT Musculoskeletal Musculoskeletal [...] RN - 11/26/2019 20:28 EDT Marysol Coma Reading Best Motor Response : Obey commands Marysol Best Verbal Response : Oriented Marysol Eye Opening Response : Spontaneous Reading Coma Score : 15 RAS VAZQUEZ RN - 11/26/2019 20:28 EDT Electronically signed by Katherine Matthew Conversion Strategic Communications Manager Cerner at 11/10/2022 12:26 AM CDT documented in this encounter Plan of Treatment Not on file documented as of this encounter Visit Diagnoses Not on filedocumented in this encounter
--- OUTSIDE RECORDS SUMMARY | 2025-05-26 12:25 | XMS_ITS | Referral Summary ---
Author Organization [employer] ([place], [place], [place], [place], [place]) Address [address] [place] [address] Care Team Providers Care Electric Meter Installer Name Role Phone Unavailable Primary Care [...]
--- OUTSIDE RECORDS SUMMARY | 2025-05-26 12:25 | XMS_ITS | Encounter Summary ---
Author Organization [employer] ([place], [place], [place], [place], [place]) Address [address] [place] [address] Care Team Providers Care Awning Craftsman Name Role Phone Unavailable Primary Care Provider Unavailabl e Encounter Details Date Type Department Care Team (Late st Contact Info) Description 11/26/2019 Transcribed Document [facility] Family Medicine [address] [place] [address] ProviderMarisa MD [address] [place] [address] Social History Tobacco Use Types [...] Appiah MD - 11/26/2019 10:25 PM CDT [facility] [place] [address] PAM RODRIGUEZ :2000 Visit Time:11/26/2019 Your Visit [...] Ask your health care provider for a rnqz-dj-mvfa plan for gradually returning to activities. ??? [...] your friends, family, a trusted colleague, and sanitation worker cleaning equipment about your injury, symptoms, and restrictions. Have them watch for any new or worsening problems. General instructions ??? Take bqxv-din-ptusbrq and prescription medicines only as told by [...] 07/10/2006 Document Revised: 11/03/2017 Document Reviewed: 01/17/2017 [employer] Interactive Patient Education ?? 2019 [employer] Sutures, [place], or Adhesive Wound Closure Wound closure refers [...] sutures, and they cause less skin reaction. Nohelia need to be removed using a tool that bends the nohelia away from your skin. Follow these instructions at home: Medicines ??? Take fkdh-yao-obkwcud and prescription medicines only as told by [...] and water are not available, use hand stone cleaner. ??? Do not try to remove your [...] 04/04/2002 Document Revised: 05/17/2018 Document Reviewed: 05/17/2018 ElseAudienceScience Interactive Patient Education ?? 2019 [employer] Emergency Awareness and Preventative Care STROKE [...] Assistance with quitting is available by contacting 3-818-HNTJ-NOW. This is a free resource providing counseling, support, and referral. Or you may contact your personal physician. [employer] Suicide Prevention Lifeline: The National Suicide Prevention [...] was given the opportunity to ask questions. Patient/Healthcare Recruiter Name: Patient/Healthcare Recruiter Signature: Relationship to Patient: Clinician/Hospital Healthcare Recruiter Signature: Please Provide a Telephone Number Where You Can Be Reached: Is it Permissible To Leave a Message? Date: Electronically signed by [facility], [facility] Conversion Child Adolescent Psychiatrist Demetri at 11/10/2022 12:11 AM CDT documented in this encounter Plan of Treatment Not on file documented as of this encounter Visit Diagnoses Not on filedocumented in this encounter
--- OUTSIDE RECORDS SUMMARY | 2025-05-26 12:25 | XMS_ITS | Clinical Summary ---
Author Organization [employer] ([place], [place], [place], [place], [place]) Address [address] [place] [address] Care Team Providers Care Fish Tender Name Role Phone Unavailable Primary Care [...]
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
--- OUTSIDE RECORDS SUMMARY | 2025-05-26 12:25 | XMS_ITS | Encounter Summary ---
Author Organization [employer] ([place], [place], [place], [place], [place]) Address [address] [place] [address] Care Team Providers Care Alteration Specialist Name Role Phone Unavailable Primary Care Provider Unavailabl e Encounter Details Date Type Department Care Team (Late st Contact Info) Description 11/26/2019 Transcribed Document [facility] [place] [address] [place] [address] ProviderMarisa MD [address] [place] [address] Social History Tobacco Use Types [...] Historical ProviderMD - 11/26/2019 8:13 PM CDT [place] Suicide Severity Rating Scale (C-SSRS) Entered On: 11/26/2019 20:30 EDT Performed On: 11/26/2019 20:28 EDT by RAS VAZQUEZ RN [place] Suicide Severity Rating Scale (C-SSRS) CSSRS Past Month Wish to be : No CSSRS Past Month Suicidal Thoughts : No CSSRS Lifetime Suicide Behavior : No Suicide Severity Rating Score : 0 Suicide Severity Rating : No Additional Care Required at this time RSA VAZQUEZ RN - 11/26/2019 20:28 EDT documented in this encounter Plan of Treatment Not on file documented as of this encounter Visit Diagnoses Not on filedocumented in this encounter
--- OUTSIDE RECORDS SUMMARY | 2025-05-26 12:25 | XMS_ITS | Encounter Summary ---
Author Organization [employer] ([place], [place], [place], [place], [place]) Address [address] [place] [address] Care Team Providers Care Mechanical Laboratory Technician Name Role Phone Unavailable Primary Care Provider Unavailabl e Encounter Details Date Type Department Care Team (Late st Contact Info) Description 11/26/2019 Transcribed Document [facility] Radiology [address] [place] [address] Henna Scott MD [facility] Dept [place] [address] Social History Tobacco Use Types Packs/Day Years [...]
--- OUTSIDE RECORDS SUMMARY | 2025-05-26 12:25 | XMS_ITS | Encounter Summary ---
Author Organization [employer] ([place], [place], [place], [place], [place]) Address [address] [place] [address] Care Team Providers Care Washer Engineer Helper Name Role Phone Unavailable Primary Care Provider Unavailabl e Encounter Details Date Type Department Care Team (Late st Contact Info) Description 11/26/2019 Transcribed Document [facility] [place] Family Medicine [address] [place] [address] ProviderMarisa MD [address] [place] [address] Social History Tobacco Use Types [...] Appiah MD - 11/26/2019 10:21 PM CDT [facility] [place] [address] PAM RODRIGUEZ :2000 Visit Time:11/26/2019 Your [...] Ask your health care provider for a wcys-lj-ghzn plan for gradually returning to activities. ??? [...] your friends, family, a trusted colleague, and community placement worker about your injury, symptoms, and restrictions. Have them watch for any new or worsening problems. General instructions ??? Take ufxw-grh-xnevtjx and prescription medicines only as told by [...] 07/10/2006 Document Revised: 11/03/2017 Document Reviewed: 01/17/2017 [employer] Interactive Patient Education ?? 2019 [employer] Inc. Sutures, [place], or Adhesive Wound Closure Wound closure refers [...] these instructions at home: Medicines ??? Take ibep-spq-yjcfdhh and prescription medicines only as told by [...] and water are not available, use hand web content director. ??? Do not try to remove your [...] 04/04/2002 Document Revised: 05/17/2018 Document Reviewed: 05/17/2018 ElseMitochon [employer] Interactive Patient Education ?? 2019 [employer]. Emergency Awareness and Preventative Care STROKE [...] Assistance with quitting is available by contacting 3-072-CRZI-NOW. This is a free resource providing counseling, support, and referral. Or you may contact your personal physician. [employer] Suicide Prevention Lifeline: The National Suicide Prevention [...] was given the opportunity to ask questions. Patient/Broom Man Name: Patient/Broom Man Signature: Relationship to Patient: Clinician/Hospital Broom Man Signature: Please Provide a Telephone Number Where You Can Be Reached: Is it Permissible To Leave a Message? Date: Electronically signed by [facility], [facility] Conversion Public Relations Writer Demetri at 11/10/2022 12:09 AM CDT documented in this encounter Plan of Treatment Not on file documented as of this encounter Visit Diagnoses Not on filedocumented in this encounter
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
--- OUTSIDE RECORDS SUMMARY | 2025-05-26 12:25 | XMS_ITS | Encounter Summary ---
Author Organization [employer] ([place], [place], [place], [place], [place]) Address [address] [place] [address] Care Team Providers Care Hog Ribber Name Role Phone Unavailable Primary Care Provider Unavailabl e Encounter Details Date Type Department Care Team (Late st Contact Info) Description 11/27/2019 Transcribed Document [facility] [place] [address] [place] [address] ProviderMarisa MD [address] [place] [address] Social History Tobacco Use Types [...]
[2025-05-26 13:07] LABS: Hematocrit 33.7 % (37.0-47.0); Hemoglobin 10.1 g/dL (12.2-16.2); Immature Granulocytes % 0.6 %; Mean Corpuscular HGB Conc 30.0 g/dL (31.8-35.4); Mean Corpuscular Hemoglobin 20.0 pg (27.0-31.2); Mean Corpuscular Volume 66.6 fl (81-99); Nucleated Red Blood Cells % 0 %; Platelet Count 334 K/mm3 (142-424); Red Blood Count 5.06 M/mm3 (4.20-5.40); Red Cell Distribution Width-SD 42.7 fL; White Blood Count 10.7 K/mm3 (4.8-10.8)
[2025-05-26 15:45] LABS: Iron 42 ug/dL (37-170)
[2025-05-26 15:57] LABS: Total Iron Binding Capacity 362 ug/dL (265-497)
[2025-05-26 16:22] LABS: Ferritin 12.5 ng/ml (6.24-137)
== END 2025-05-26 23:59 | disposition home or self-care (01) ==
LOC: LAB 12:20
PROVIDERS: PCP Nurse Practitioner Family; Visit Provider Internal Medicine Medical Oncology
DX: D64.9 Anemia, unspecified (principal)
CPT/HCPCS: 36415; 82728; 83540; 83550; 85025